=== PATIENT | female | born 1990 | race Caucasian/White ===

== ENCOUNTER 2016-10-21 11:09 | Emergency (ER) | payer OTHER ==
[2016-10-21 11:32] VITALS: TEMP 98.1
[2016-10-21] MEDS ORDERED: DICYCLOMINE 10 MG/ML 2 ML AMP IM STA (11:39)
[2016-10-21] MEDS ORDERED: ONDANSETRON 4 MG/2 ML VIAL IVP STA (11:39)
[2016-10-21] MEDS ORDERED: SODIUM CHLORIDE 0.9% 1,000 ML IV STA (11:39)
--- NOTE | 2016-10-21 11:41 | ED ---
Nausea/Vomiting/Diarrhea HPI - General Chief complaint: Nausea/Vomiting/Diarrhea Stated complaint: vomiting Time Seen by Provider: 10/21/16 11:37 Source: patient, RN notes reviewed Mode of arrival: ambulatory Limitations: no limitations - History of Present Illness Initial comments: 26-year-old female presents to the emergency Department chief complaint of nausea vomiting and diarrhea. Patient has had the symptoms for the past few days. Patient states that she has just been throwing up and having the diarrhea. Patient states that her whole abdomen feels crampy. Patient denies any fever chills with this. Patient denies any changes in food or diarrhea. Patient states she was concerned because she was not eating or drinking anything so she thought that she should be seen. Patient denies any recent fever , chills, shortness of breath, chest pain, back pain, abdominal pain, nausea vomiting, numbness or tingling, dysuria or hematuria, constipation or diarrhea, headaches or visual changes, or any other current symptoms. - Related Data Previous Rx's Medication Instructions Recorded Ondansetron Odt [Zofran ODT] 4 mg PO Q8HR PRN #20 tab 10/21/16 Allergies Allergy/AdvReac Type Severity Reaction Status Date / Time latex Allergy Unknown Verified 10/21/16 12:47 Review of Systems ROS Statement: Those systems with pertinent positive or pertinent negative responses have been documented in the HPI. ROS Other: All systems not noted in ROS Statement are negative. Past Medical History Past Medical History: No Reported History History of Any Multi-Drug Resistant Organisms: None Reported Additional Past Surgical History / Comment(s): splenectomy Past Psychological History: No Psychological Hx Reported Smoking Status: Never smoker Past Alcohol Use History: Rare Past Drug Use History: None Reported - Past Family History Father Family Medical History: Hyperlipidemia, Hypertension General Exam - General Exam Comments Initial Comments: General: The patient is awake and alert, in no distress, and does not appear acutely ill. Eye: Pupils are equal, round and reactive to light, extra-ocular movements are intact; there is normal conjunctiva bilaterally. No signs of icterus. Ears, nose, mouth and throat: There are moist mucous membranes. Neck: The neck is supple, there is no tenderness. Cardiovascular: There is a regular rate and rhythm. No murmur, rub or gallop is appreciated. Respiratory: Lungs are clear to auscultation, respirations are non-labored, breath sounds are equal. No wheezes, stridor, rales, or rhonchi. Gastrointestinal: Soft, non-distended, non-tender abdomen without masses or organomegaly noted. There is no rebound or guarding present. No CVA tenderness. Bowel sounds are unremarkable. Back: There is no tenderness to palpation in the midline. There is no obvious deformity. No rashes noted. Musculoskeletal: Normal ROM, no tenderness, There is no pedal edema. There is no calf tenderness or swelling. Sensation intact. Pulses equal bilaterally 2+. Neurological: CN II-XII intact, There are no obvious motor or sensory deficits. Coordination appears grossly intact. Speech is normal. Skin: Skin is warm and dry and no rashes or lesions are noted. Psychiatric: Cooperative, appropriate mood & affect, normal judgment. Limitations: no limitations Course Vital Signs 10/21/16 11:30 Temperature 98.1 F Pulse Rate 65 Respiratory 16 Rate Blood Pressure 102/60 O2 Sat by Pulse 100 Oximetry Medical Decision Making - Medical Decision Making 26-year-old female presents emergency room chief complaint of nausea vomiting and diarrhea. At this time the patient does appear to be most consistent with a possible gastroenteritis. Patient's abdomen is soft and nontender and is not lessening pain medication here. This time we discussed with start her on Zofran for home. We discussed follow-up return parameters all patient's questions. She stated that she understood and she is in agreement with plan. She will be discharged. - Lab Data Result diagrams: 10/21/16 11:50 10/21/16 11:50 Lab Results 10/21/16 10/21/16 10/21/16 Range/Units 11:50 11:50 12:15 WBC 11.6 H (3.8-10.6) k/uL RBC 5.16 (3.80-5.40) m/uL Hgb 15.1 (11.4-16.0) gm/dL Hct 47.5 H (34.0-46.0) % MCV 92.1 (80.0-100.0) fL MCH 29.4 (25.0-35.0) pg MCHC 31.9 (31.0-37.0) g/dL RDW 12.8 (11.5-15.5) % Plt Count 596 H (150-450) k/uL Neutrophils % 81 % Lymphocytes % 11 % Monocytes % 5 % Eosinophils % 3 % Basophils % 0 % Neutrophils # 9.4 H (1.3-7.7) k/uL Lymphocytes # 1.2 (1.0-4.8) k/uL Monocytes # 0.6 (0-1.0) k/uL Eosinophils # 0.3 (0-0.7) k/uL Basophils # 0.0 (0-0.2) k/uL Sodium 139 (137-145) mmol/L Potassium 4.2 (3.5-5.1) mmol/L Chloride 104 (98-107) mmol/L Carbon Dioxide 23 (22-30) mmol/L Anion Gap 12 mmol/L BUN 15 (7-17) mg/dL Creatinine 0.80 (0.52-1.04) mg/dL Est GFR (MDRD) Af Amer >60 (>60 ml/min/1.73 sqM) Est GFR (MDRD) Non-Af >60 (>60 ml/min/1.73 sqM) Glucose 81 (74-99) mg/dL Calcium 9.5 (8.4-10.2) mg/dL Total Bilirubin 1.2 (0.2-1.3) mg/dL AST 23 (14-36) U/L ALT 23 (9-52) U/L Alkaline Phosphatase 66 (38-126) U/L Total Protein 7.6 (6.3-8.2) g/dL Albumin 4.5 (3.5-5.0) g/dL Amylase 60 (30-110) U/L Lipase 111 (23-300) U/L Urine Color Urine Appearance (Clear) Urine pH (5.0-8.0) Ur Specific [place] (1.001-1.035) Urine Protein (Negative) Urine Glucose (UA) (Negative) Urine Ketones (Negative) Urine Blood (Negative) Urine Nitrite (Negative) Urine Bilirubin (Negative) Urine Urobilinogen (<2.0) mg/dL Ur Leukocyte Esterase (Negative) Urine RBC (0-5) /hpf Urine WBC (0-5) /hpf Ur Squamous Epith Cells (0-4) /hpf Urine Mucus (None) /hpf Urine HCG, Qual Not Detected (Not Detectd) 05/20/17 Range/Units 12:15 WBC (3.8-10.6) k/uL RBC (3.80-5.40) m/uL Hgb (11.4-16.0) gm/dL Hct (34.0-46.0) % MCV (80.0-100.0) fL MCH (25.0-35.0) pg MCHC (31.0-37.0) g/dL RDW (11.5-15.5) % Plt Count (150-450) k/uL Neutrophils % % Lymphocytes % % Monocytes % % Eosinophils % % Basophils % % Neutrophils # (1.3-7.7) k/uL Lymphocytes # (1.0-4.8) k/uL Monocytes # (0-1.0) k/uL Eosinophils # (0-0.7) k/uL Basophils # (0-0.2) k/uL Sodium (137-145) mmol/L Potassium (3.5-5.1) mmol/L Chloride (98-107) mmol/L Carbon Dioxide (22-30) mmol/L Anion Gap mmol/L BUN (7-17) mg/dL Creatinine (0.52-1.04) mg/dL Est GFR (MDRD) Af Amer (>60 ml/min/1.73 sqM) Est GFR (MDRD) Non-Af (>60 ml/min/1.73 sqM) Glucose (74-99) mg/dL Calcium (8.4-10.2) mg/dL Total Bilirubin (0.2-1.3) mg/dL AST (14-36) U/L ALT (9-52) U/L Alkaline Phosphatase (38-126) U/L Total Protein (6.3-8.2) g/dL Albumin (3.5-5.0) g/dL Amylase (30-110) U/L Lipase (23-300) U/L Urine Color Yellow Urine Appearance Cloudy H (Clear) Urine pH 5.5 (5.0-8.0) Ur Specific [place] 1.025 (1.001-1.035) Urine Protein 1+ H (Negative) Urine Glucose (UA) Negative (Negative) Urine Ketones 4+ H (Negative) Urine Blood Small H (Negative) Urine Nitrite Negative (Negative) Urine Bilirubin Negative (Negative) Urine Urobilinogen 3.0 (<2.0) mg/dL Ur Leukocyte Esterase Moderate H (Negative) Urine RBC 2 (0-5) /hpf Urine WBC 5 (0-5) /hpf Ur Squamous Epith Cells 24 H (0-4) /hpf Urine Mucus Occasional H (None) /hpf Urine HCG, Qual (Not Detectd) - Radiology Data Radiology results: report reviewed, image reviewed Disposition Clinical Impression: Nausea & vomiting, Dehydration Disposition: HOME SELF-CARE Condition: Stable Instructions: Acute Nausea and Vomiting (ED) Additional Instructions: Please use medication as discussed. Please follow up with family doctor if symptoms have not improved over the next two days. Please return to the emergency room if your symptoms increase or worsen or for any other concerns. Prescriptions: Ondansetron Odt [Zofran ODT] 4 mg PO Q8HR PRN #20 tab PRN Reason: Nausea Referrals: Vonda Orosco MD [Primary Care Provider] - 1-2 days Time of Disposition: 12:57
[2016-10-21 12:21] LABS: ALT 23 U/L (9-52); AST 23 U/L (14-36); Alkaline Phosphatase 66 U/L (38-126); Amylase 60 U/L (30-110); Anion Gap 12 mmol/L; Blood Urea Nitrogen 15 mg/dL (7-17); Calcium 9.5 mg/dL (8.4-10.2); Carbon Dioxide 23 mmol/L (22-30); Chloride 104 mmol/L (98-107); Glucose 81 mg/dL (74-99); Non-African American GFR(MDRD) >60 (>60 ml/min/1.73 sqM); Sodium 139 mmol/L (137-145); Total Bilirubin 1.2 mg/dL (0.2-1.3); Total Protein 7.6 g/dL (6.3-8.2)
[2016-10-21 12:22] LABS: Potassium 4.2 mmol/L (3.5-5.1)
[2016-10-21 12:25] LABS: Basophils % (A) 0 %; CHCM 32.8; Eosinophils # (A) 0.3 k/uL (0-0.7); Eosinophils % (A) 3 %; HCT 47.5 % (34.0-46.0); HGB 15.1 gm/dL (11.4-16.0); Luc # (Auto) 0.11; Luc % (Auto) 1; Lymphocytes # (A) 1.2 k/uL (1.0-4.8); Lymphocytes % (A) 11 %; MCH 29.4 pg (25.0-35.0); MCHC 31.9 g/dL (31.0-37.0); MCV 92.1 fL (80.0-100.0); Mean Platelet Volume 6.3; Monocytes # (A) 0.6 k/uL (0-1.0); Monocytes % (A) 5 %; Neutrophils # (A) 9.4 k/uL (1.3-7.7); Neutrophils % (A) 81 %; RBC 5.16 m/uL (3.80-5.40); RDW 12.8 % (11.5-15.5); WBC 11.6 k/uL (3.8-10.6); WBC (Perox) 11.69
[2016-10-21 12:33] LABS: Appearance,Urine Cloudy (Clear); Bilirubin,Urine Negative (Negative); Glucose,Urine (UA) Negative (Negative); Ketones,Urine 4+ (Negative); Leukocyte Esterase,Urine Moderate (Negative); Mucus,Urine Occasional /hpf; Nitrite,Urine Negative (Negative); PH, Urine 5.5 (5.0-8.0); Particle Count 11250; Protein,Urine 1+ (Negative); RBC,Urine 2 /hpf (0-5); Specific Gravity,Urine 1.025 (1.001-1.035); Squamous Epithelial Cell,Urine 24 /hpf (0-4); UA Billing (MACRO vs. MICRO) MICRO; WBC,Urine 5 /hpf (0-5)
--- NOTE | 2016-10-21 12:57 | XR ---
EXAMINATION TYPE: XR abdomen 2V DATE OF EXAM: 10/21/2016 12:51 PM CLINICAL DATA: 26-year-old female pain and vomiting for 2 days, [facility] COMPARISON: 03/27/2015 FINDINGS: Lung bases are clear. Some stable minimal tenting of the left hemidiaphragm relating to pleural paren chymal scarring. No evidence for free intraperitoneal air. No dilated small bowel or air-fluid levels. Scattered air and stool seen throughout the colon extendi ng distally into the rectum. No significant stool burden. No suspicious calcifications identified. IMPRESSION: No significant stool burden. No evidence of bowel obstruction or free intraperitoneal air.
[2016-10-21 13:07] VITALS: BP 105/51; PULSE 62; RESP 18
== END 2016-10-21 13:08 | disposition home or self-care (01) ==
LOC: EC 11:09
DX: E86.0 Dehydration (principal); Z91.040 Latex allergy status
CPT/HCPCS: 99284; 96374; 96361; 36415; 80053; 82150; 83690; 85025; 81001; 81025; 74020; J2405

== ENCOUNTER 2016-11-24 21:07 | Observation (INO) | payer OTHER ==
[2016-11-24] MEDS ORDERED: SODIUM CHLORIDE 0.9% 1,000 ML IV ONE (21:34)
[2016-11-24] MEDS ORDERED: METOCLOPRAMIDE 5 MG/ML 2 ML VIAL IVP STA (21:34)
[2016-11-24] MEDS ORDERED: diphenhydrAMINE 50 MG/ML 1 ML VIAL IVP STA (21:34)
[2016-11-24] MEDS ORDERED: ACETAMINOPHEN TAB 500 MG TAB PO STA (21:34)
--- NOTE | 2016-11-24 21:41 | ED ---
Headache HPI - General Chief Complaint: Headache Stated Complaint: blurred vision/mouth numbness Mode of arrival: ambulatory Limitations: no limitations - History of Present Illness Initial Comments: Patient is a 26-year-old female who presents for evaluation for intermittent visual loss/left face numbness/left hand numbness/blurry vision/headache over the last couple of days. Past medical history as below. Patient stated 3-4 days ago she lost vision in both of her eyes for 10 minutes. It spontaneously resolved and came back. She then felt nauseous and had numbness in her left hand. It spontaneously resolved as well. She had a headache during this time. No symptoms after that. However, today around 7:30 PM, she again lost vision for roughly 10 minutes which spontaneously resolved. She again felt nauseous and had some numbness on the left side of her face and left hand. Is also resolved. Is very similar to her first episode 3-4 days ago. She currently has a dull/throbbing headache in the front of her head. It is similar to previous headaches. It is currently 5-6 out of 10. It radiates to the back of her head. Sleeping makes it better. Nothing makes it worse. She has a history of migraines and is seen a specialist before in the past but is currently not on any medications. She admits to smoking marijuana. She smoked about 3-4 days ago. No other drug use or alcohol. No family history of multiple sclerosis or any other autoimmune disorders. Does not wear glasses or contacts. She currently denies fever, chills, changes in vision, URI symptoms, shortness breath, cough, chest pain, vomiting, diarrhea, pain or burning with urination. - Related Data Home Medications Medication Instructions Recorded Confirmed No Known Home Medications [No 11/24/16 11/24/16 Known Home Medications] Allergies Allergy/AdvReac Type Severity Reaction Status Date / Time latex Allergy Rash/Hives Verified 11/24/16 21:19 Review of Systems ROS Statement: Those systems with pertinent positive or pertinent negative responses have been documented in the HPI. ROS Other: All systems not noted in ROS Statement are negative. Past Medical History Past Medical History: No Reported History History of Any Multi-Drug Resistant Organisms: None Reported Additional Past Surgical History / Comment(s): splenectomy Past Psychological History: No Psychological Hx Reported Smoking Status: Never smoker Past Alcohol Use History: Rare Past Drug Use History: None Reported - Past Family History Father Family Medical History: Hyperlipidemia, Hypertension General Exam Limitations: no limitations General appearance: alert, in no apparent distress, other (Nontoxic-appearing resting comfortably in the stretcher) Head exam: Present: atraumatic, normocephalic, normal inspection Eye exam: Present: normal appearance, PERRL, EOMI, other (No conjunctival injection. Pupils equal round reactive to light and accommodation. Extra ocular muscles intact.). Absent: scleral icterus, conjunctival injection, nystagmus, periorbital swelling, periorbital tenderness ENT exam: Present: normal exam, mucous membranes moist Neck exam: Present: normal inspection. Absent: tenderness, meningismus, lymphadenopathy Respiratory exam: Present: normal lung sounds bilaterally. Absent: respiratory distress, wheezes, rales, rhonchi, stridor Cardiovascular Exam: Present: regular rate, normal rhythm, normal heart sounds. Absent: systolic murmur, diastolic murmur, rubs, gallop, clicks GI/Abdominal exam: Present: soft, normal bowel sounds, other (No pain with palpation of the abdomen. Soft. No peritoneal signs.). Absent: distended, tenderness, guarding, rebound, rigid Extremities exam: Present: normal inspection, full ROM, normal capillary refill. Absent: tenderness, pedal edema, joint swelling, calf tenderness Back exam: Present: normal inspection Neurological exam: Present: alert, oriented X3, CN II-XII intact, other (Alert and oriented 3. Cranial nerves II through XII grossly intact without focal neurological deficits. 5-5 strength of the upper and lower extremities. No ataxia of the upper or lower extremities. Sensation intact in all 4 extremities. L4 and S1 reflexes intact. NIH stroke scale of 0.) Psychiatric exam: Present: normal affect, normal mood Skin exam: Present: warm, dry, intact, normal color. Absent: rash Course Vital Signs 11/24/16 21:10 Temperature 98 F Pulse Rate 63 Respiratory 20 Rate Blood Pressure 157/60 O2 Sat by Pulse 100 Oximetry Medical Decision Making - Medical Decision Making Patient is a 26-year-old female resents for evaluation for migraine with loss of vision and left hand and left face numbness. Currently resolved. Does have a mild throbbing headache at this time. We'll order basic labs and a CT head with urinalysis and urine test. Will order an IV fluid bolus with acetaminophen, Reglan, Benadryl. 2200: Reevaluated the patient after she received her medications. Her headache is much improved. She feels a little sleepy. But overall feels better. Clarified with the patient what she meant by loss of vision. She does not lose vision but states that her vision becomes very blurry. Awaiting laboratory studies, urinalysis and CT head. 2330: Reviewed CT imaging of the brain which reveal no acute process. I reevaluated the patient and she states her headache is improved though still present. She is not having any lateralizing neuro deficits at this time or visual changes. Gave patient option of discharge home with follow-up with neuro an outpatient MRI versus observation overnight with neuro checks MRI and neurology follow-up. Patient elected the latter. I discussed the case with Dr. Bill who agrees to observation. Placed neuro consult and ordered an MRI without contrast at his request. - Lab Data Result diagrams: 11/24/16 21:53 11/24/16 21:53 Lab Results 11/24/16 11/24/16 11/24/16 Range/Units 21:45 21:45 21:53 WBC (3.8-10.6) k/uL RBC (3.80-5.40) m/uL Hgb (11.4-16.0) gm/dL Hct (34.0-46.0) % MCV (80.0-100.0) fL MCH (25.0-35.0) pg MCHC (31.0-37.0) g/dL RDW (11.5-15.5) % Plt Count (150-450) k/uL Neutrophils % % Lymphocytes % % Monocytes % % Eosinophils % % Basophils % % Neutrophils # (1.3-7.7) k/uL Lymphocytes # (1.0-4.8) k/uL Monocytes # (0-1.0) k/uL Eosinophils # (0-0.7) k/uL Basophils # (0-0.2) k/uL Sodium 140 (137-145) mmol/L Potassium 4.1 (3.5-5.1) mmol/L Chloride 107 (98-107) mmol/L Carbon Dioxide 22 (22-30) mmol/L Anion Gap 11 mmol/L BUN 7 (7-17) mg/dL Creatinine 0.71 (0.52-1.04) mg/dL Est GFR (MDRD) Af Amer >60 (>60 ml/min/1.73 sqM) Est GFR (MDRD) Non-Af >60 (>60 ml/min/1.73 sqM) Glucose 79 (74-99) mg/dL Calcium 9.1 (8.4-10.2) mg/dL Magnesium 2.0 (1.6-2.3) mg/dL Urine Color Light Yellow Urine Appearance Clear (Clear) Urine pH 6.0 (5.0-8.0) Ur Specific [place] 1.008 (1.001-1.035) Urine Protein Negative (Negative) Urine Glucose (UA) Negative (Negative) Urine Ketones Negative (Negative) Urine Blood Negative (Negative) Urine Nitrite Negative (Negative) Urine Bilirubin Negative (Negative) Urine Urobilinogen <2.0 (<2.0) mg/dL Ur Leukocyte Esterase Negative (Negative) Urine HCG, Qual Not Detected (Not Detectd) 11/24/16 Range/Units 21:53 WBC 12.5 H (3.8-10.6) k/uL RBC 4.67 (3.80-5.40) m/uL Hgb 14.6 (11.4-16.0) gm/dL Hct 42.4 (34.0-46.0) % MCV 90.7 (80.0-100.0) fL MCH 31.2 (25.0-35.0) pg MCHC 34.3 (31.0-37.0) g/dL RDW 12.6 (11.5-15.5) % Plt Count 542 H (150-450) k/uL Neutrophils % 57 % Lymphocytes % 32 % Monocytes % 5 % Eosinophils % 3 % Basophils % 1 % Neutrophils # 7.2 (1.3-7.7) k/uL Lymphocytes # 4.0 (1.0-4.8) k/uL Monocytes # 0.6 (0-1.0) k/uL Eosinophils # 0.4 (0-0.7) k/uL Basophils # 0.1 (0-0.2) k/uL Sodium (137-145) mmol/L Potassium (3.5-5.1) mmol/L Chloride (98-107) mmol/L Carbon Dioxide (22-30) mmol/L Anion Gap mmol/L BUN (7-17) mg/dL Creatinine (0.52-1.04) mg/dL Est GFR (MDRD) Af Amer (>60 ml/min/1.73 sqM) Est GFR (MDRD) Non-Af (>60 ml/min/1.73 sqM) Glucose (74-99) mg/dL Calcium (8.4-10.2) mg/dL Magnesium (1.6-2.3) mg/dL Urine Color Urine Appearance (Clear) Urine pH (5.0-8.0) Ur Specific [place] (1.001-1.035) Urine Protein (Negative) Urine Glucose (UA) (Negative) Urine Ketones (Negative) Urine Blood (Negative) Urine Nitrite (Negative) Urine Bilirubin (Negative) Urine Urobilinogen (<2.0) mg/dL Ur Leukocyte Esterase (Negative) Urine HCG, Qual (Not Detectd) Disposition Clinical Impression: Intractable headache, Neurological deficit, transient Disposition: ADMITTED IP TO THIS [facility] Condition: Good Referrals: Vonda Orosco MD [Primary Care Provider] - 1-2 days Decision to Admit Reason: Admit from EC
[2016-11-24 22:22] LABS: Basophils # (A) 0.1 k/uL (0-0.2); Basophils % (A) 1 %; CH 29.8; CHCM 33.1; Eosinophils # (A) 0.4 k/uL (0-0.7); Eosinophils % (A) 3 %; HCT 42.4 % (34.0-46.0); HDW 2.25; HGB 14.6 gm/dL (11.4-16.0); Luc # (Auto) 0.25; Luc % (Auto) 2; Lymphocytes % (A) 32 %; MCH 31.2 pg (25.0-35.0); MCHC 34.3 g/dL (31.0-37.0); MCV 90.7 fL (80.0-100.0); Mean Platelet Volume 6.2; Monocytes # (A) 0.6 k/uL (0-1.0); Monocytes % (A) 5 %; Neutrophils # (A) 7.2 k/uL (1.3-7.7); Neutrophils % (A) 57 %; RBC 4.67 m/uL (3.80-5.40); RDW 12.6 % (11.5-15.5); WBC 12.5 k/uL (3.8-10.6); WBC (Perox) 13.18
[2016-11-24 22:23] LABS: Appearance,Urine Clear (Clear); Bilirubin,Urine Negative (Negative); Glucose,Urine (UA) Negative (Negative); Ketones,Urine Negative (Negative); Leukocyte Esterase,Urine Negative (Negative); Nitrite,Urine Negative (Negative); Protein,Urine Negative (Negative); Specific Gravity,Urine 1.008 (1.001-1.035); UA Billing (MACRO vs. MICRO) CHEM; Urobilinogen,Urine <2.0 mg/dL (<2.0)
[2016-11-24 22:29] LABS: Anion Gap 11 mmol/L; Blood Urea Nitrogen 7 mg/dL (7-17); Calcium 9.1 mg/dL (8.4-10.2); Carbon Dioxide 22 mmol/L (22-30); Chloride 107 mmol/L (98-107); Glucose 79 mg/dL (74-99); Non-African American GFR(MDRD) >60 (>60 ml/min/1.73 sqM); Potassium 4.1 mmol/L (3.5-5.1); Sodium 140 mmol/L (137-145)
--- NOTE | 2016-11-24 23:16 | CT ---
History: Reason: Pain Exam: CT HEAD Without Contrast Technique more: CTDI is 60.30 mGy and DLP is 1108.40 mGy-cm. Technique more: This CT exam was performed using one or more of the following dose reduction techniques: automated exposure control, adjustment of the mA and/or kV according to patient size, and/or use of iterative reconstruction technique. Comparison: None available FINDINGS: No intracranial hemorrhage, mass effect or CT evidence of acute infarct. The ventricles are within limits and midline. The ortiz-white differentiation appears preserved. Mild paranasal sinus mucoperiosteal thickening. The mastoid and orbits appear within limits. IMPRESSION: No intracranial hemorrhage, mass effect or CT evidence of acute infarct. May follow-up with nonemergent MRI as warranted. Mild paranasal sinus mucoperiosteal thickening.
[2016-11-24] MEDS ORDERED: KETOROLAC 30 MG/ML 1 ML VIAL IVP STA (23:33)
[2016-11-24] MEDS ORDERED: NALOXONE 0.4 MG/ML 1 ML VIAL IV PRN (23:33)
[2016-11-25 07:35] VITALS: RESP 14
[2016-11-25] MEDS: BUTALB/APAP/CAFF 50-325-40MG TAB PO PRN ×2 (07:49→11:33)
--- NOTE | 2016-11-25 09:07 | MR ---
EXAMINATION TYPE: MR brain wo con DATE OF EXAM: 11/25/2016 8:52 AM. COMPARISON: NONE. HISTORY: Severe headache. Technique: Multiplanar, multiecho imaging of the brain was obtained without intravenous contrast. FINDINGS: Midline structures are unremarkable. There is a normal craniocervical junction. Echoplanar diffusion imaging is normal. There are normal vascular flow voids. The orbits are normal. There is mild mucoperiosteal thickening involving the frontal and ethmoidal sinuses as well as the ma xillary sinuses bilaterally. There is no evidence of a CP angle mass lesion. No acute focal lesion, mass effect or midline shift is seen. I do not see evidence of intracranial bl ood. IMPRESSION: 1. NO ACUTE INTRACRANIAL ABNORMALITY. 2. MILD, CHRONIC SINUS MUCOSAL DISEASE.
[2016-11-25] MEDS ORDERED: RX INFO: IV CONTRAST WAS GIVEN 1 EACH MISC MISCELLANE PRN (13:00)
--- NOTE | 2016-11-25 13:12 | P.CNNES ---
History of Present Illness Consult date: 11/25/16 Reason for Consult: This patient admitted with recurrent headache and visual loss. History of Present Illness: This patient is a 26-year-old left-handed white female who was in her usual state of health until 4 days ago. Patient states that over the last 4 days at home she has been experiencing recurrent headache pain. The pain and numbness has been mostly involving her left side of the head in the frontal region. On several occasions when she gets a headache she has been experiencing visual loss in both eyes. She states that the visual loss slowly improves and then she deals with a severe recurrent headache. She has a history of migraine headaches in the past for which she was treated. More recently she has not had to have any medications. She has used fierce at in the past for treatment of her vascular migraine headaches. Patient states that she has been experiencing numbness in the hands as well as the face when she gets these headaches. She describes the headaches as mostly bifrontal in location and throbbing in character. She rates the headache pain 5/10. Due to the recurrent nature of the headache symptom she was brought into the emergency room at [facility] yesterday. She was seen in the ER by Dr. Mae. She was sent for a computed tomography scan of the brain which was reported negative for any acute changes. Her headache pain yesterday was 5/10. Today it is improved. She did not experience any neck pain or fever chills in the ER. Due to her symptoms of recurrent headache and visual changes she was sent for MRI of the brain today. MRI is reported negative for any evidence of acute stroke or hemorrhage. The patient states she has had headaches in the past but this was quite severe over the last 3-4 days. We did we reviewed the results of the MRI that was done today with the patient. Her headache pain has improved today but still seems to be bifrontal in location. When questioned about her visual changes she states she did have bilateral visual loss. She also had peripheral vision loss at the onset of these headache symptoms. We have recommended the patient undergo a CTA angiogram of the head and neck to rule out any intracranial aneurysm or vascular changes. The patient is now admitted and neurology has been consulted for further evaluation and recommendations. Review of Systems Constitutional: Denies chills, Denies fever Eyes: denies blurred vision, denies pain Ears, nose, mouth and throat: Denies headache, Denies sore throat Cardiovascular: Denies chest pain, Denies shortness of breath Respiratory: Denies cough Gastrointestinal: Denies abdominal pain, Denies diarrhea, Denies nausea, Denies vomiting Genitourinary: Denies dysuria, Denies hematuria Musculoskeletal: Denies myalgias Integumentary: Denies pruritus, Denies rash Neurological: Reports double vision, Reports headaches, Reports loss of vision, Reports visual changes, Denies numbness, Denies weakness Psychiatric: Denies anxiety, Denies depression Endocrine: Denies fatigue, Denies weight change Past Medical History Past Medical History: No Reported History History of Any Multi-Drug Resistant Organisms: None Reported Additional Past Surgical History / Comment(s): splenectomy Past Anesthesia/Blood Transfusion Reactions: No Reported Reaction Past Psychological History: No Psychological Hx Reported Smoking Status: Never smoker Past Alcohol Use History: Rare Past Drug Use History: None Reported - Past Family History Father Family Medical History: Hyperlipidemia, Hypertension Medications and Allergies Home Medications Medication Instructions Recorded Confirmed Type No Known Home Medications [No 11/24/16 11/24/16 History Known Home Medications] Allergies Allergy/AdvReac Type Severity Reaction Status Date / Time latex Allergy Rash/Hives Verified 11/24/16 21:19 Physical Examination - Vital Signs Vital Signs: Vital Signs Temp Pulse Pulse Resp BP BP Pulse Ox 11/25/16 07:00 97.4 F L 69 14 102/58 99 11/25/16 01:09 18 11/25/16 01:00 98.2 F 62 16 102/57 98 11/25/16 00:36 98.4 F 72 15 101/56 97 11/24/16 23:47 98.2 F 63 20 111/57 99 11/24/16 21:10 98 F 63 20 157/60 100 Intake and Output 11/24/16 11/25/16 11/25/16 22:59 06:59 14:59 Other: # Voids 1 Weight 51.71 kg - Constitutional General appearance: average body habitus, cooperative - EENT EENT: PERRL, mucous membranes moist - Respiratory Respiratory: lungs clear, normal breath sounds - Cardiovascular Cardiovascular: regular rate, normal S1, normal S2 Extremities: no peripheral edema bilaterally - Gastrointestinal Gastrointestinal: normoactive bowel sounds - Integumentary Integumentary: normal - Neurologic Cranial nerve examination: PERRL, EOMI, VFF, V1/V2/V3 grossly intact, tongue midline, intact gag reflex, intact corneal reflex, normal palatal elevation Speech examination: intact Sensorimotor examination: intact Detailed motor examination: grossly full strength in all extremities Motor examination - right side: 5/5: biceps, triceps, wrist flexion, wrist extension, market master, hip flexors, knee extensors, dorsiflexion, toe extension (EHL) , plantarflexion Motor examination - left side: 5/5: biceps, triceps, wrist flexion, wrist extension, market master, hip flexors, knee extensors, dorsiflexion, toe extension (EHL) , plantarflexion Detailed sensory examination: intact Reflex and gait examination: intact Reflexes: 1+: ankle, bicep, knee, tricep - Musculoskeletal Musculoskeletal: no pain - Psychiatric Psychiatric: mood/affect appropriate, cooperative Results - Laboratory Findings CBC and BMP: 11/24/16 21:53 11/24/16 21:53 Abnormal Lab Findings: Abnormal Labs 11/24/16 21:53 WBC 12.5 H Plt Count 542 H Assessment and Plan (1) Migraine headache with aura Status: Acute Code(s): G43.109 - MIGRAINE WITH AURA, NOT INTRACTABLE, W/O STATUS MIGRAINOSUS (2) Complicated migraine Status: Acute Code(s): G43.109 - MIGRAINE WITH AURA, NOT INTRACTABLE, W/O STATUS MIGRAINOSUS Plan: This patient is a 26-year-old female who was admitted to the hospital with 4 day history of recurrent headache pain. Headaches were mostly in the bifrontal region of the head. She was brought into the emergency room yesterday where she was seen by Dr. Mae. She underwent a computed tomography scan of the brain which was reported negative. She was subsequent admitted to the hospital for further evaluation. She underwent MRI of the brain today but results which are noted above. MRI is negative for any acute changes. Patient did have evidence suggesting complicated migraine with visual aura. We've recommended patient undergo a CTA angiogram of the head and neck to rule out vascular malformation. If this study comes back negative she may be considered for discharge home. Her clinical history is consistent with complicated migraine. She may consider use appears that as needed for management. We will continue close neurological follow-up this patient during this admission. Overall prognosis at this time remains guarded. Time with Patient: Greater than 30
--- NOTE | 2016-11-25 14:18 | CT ---
EXAMINATION TYPE: CT angio head neck DATE OF EXAM: 11/25/2016 HISTORY: ROACH and vision loss COMPARISON: NONE CT DLP: 183.8 mGycm. Automated Exposure Control for Dose Reduction was Utilized. TECHNIQUE: CTA scan of the neck is performed with IV Contrast, patient injected with 65 mL of Omnipa que 350, axial images are obtained, coronal and sagittal reformatted images are reviewed. Three-D rec onstructed images are created on an independent workstation and reviewed. FINDINGS: There is normal branching pattern of the great vessels on the aortic arch. There is bilateral arteria l flow in the vertebral arteries. There is arterial flow in the common internal and external carotid arteries. There is no evidence of aneurysm or dissection. There is no evidence of stenosis. There is normal contrast opacification of the jugular veins. There is arterial flow in the vertebrobasilar artery system. There is flow in both distal vertebral a rteries. Vertebral arteries are symmetric. There is arterial flow in the anterior middle and posterior cerebral arteries. There is normal contra st opacification of the venous sinuses. There is no mass effect. There is no sign of neovascularity. IMPRESSION: Normal CT angiogram of the neck. Normal CT angiogram of the brain.
[2016-11-25 15:25] VITALS: BP 96/59; PULSE 64; TEMP 97.5
== END 2016-11-25 16:22 | disposition home or self-care (01) ==
LOC: EC 21:07 → 4MS4W 23:33
PROVIDERS: ADMIT Family Medicine; ATTEND Family Medicine
DX: G43.109 Migraine with aura, not intractable, without status migrainosus (principal); R29.818 Other symptoms and signs involving the nervous system; H53.8 Other visual disturbances; R20.0 Anesthesia of skin; F12.90 Cannabis use, unspecified, uncomplicated; Z87.891 Personal history of nicotine dependence; Z91.040 Latex allergy status; Z90.81 Acquired absence of spleen; Z82.49 Family history of ischemic heart disease and other diseases of the circulatory system; R56.9 Unspecified convulsions
CPT/HCPCS: 96375 ×3; 96361 ×2; 96374 ×2; 99285 ×2; 36415; 80048; 83735; 85025; 81003; 81025; 70496; 70450; 70498; 70551; G0378 ×2; J1200; J2765; Q9967; J1885

== ENCOUNTER 2017-07-15 09:51 | Emergency (ER) | payer OTHER ==
--- NOTE | 2017-07-15 10:35 | ED ---
Neck Injury/Pain HPI - General Chief Complaint: Neck Pain/Injury Stated Complaint: Neck pain Time Seen by Provider: 07/15/17 10:20 Source: patient, RN notes reviewed Mode of arrival: ambulatory Limitations: no limitations - History of Present Illness Initial Comments: This is a 27 year old female who presents with a chief complaint of neck pain that is typically chronic in nature, but worsening over the last week. The pain is located in her cervical spine region and radiates equally to bilateral shoulders. The patient denies any recent injury, and states that she woke up with it in severe pain. The pain is worse with standing or staying in position for long periods of time. She was evaluated by her PCP who treated her with Robaxin, Zofran, and Medrol Dose pack. The patient states the Robaxin does not provide her relief, and she has not taken the Medrol dose pack because she was afraid to take the pills. - Related Data Previous Rx's Medication Instructions Recorded Cyclobenzaprine [Flexeril] 10 mg PO TID PRN #15 tab 07/15/17 predniSONE 50 mg PO DAILY #5 tab 07/15/17 Allergies Allergy/AdvReac Type Severity Reaction Status Date / Time latex Allergy Rash/Hives Verified 07/15/17 09:59 Review of Systems ROS Statement: Those systems with pertinent positive or pertinent negative responses have been documented in the HPI. ROS Other: All systems not noted in ROS Statement are negative. Past Medical History Past Medical History: No Reported History History of Any Multi-Drug Resistant Organisms: None Reported Additional Past Surgical History / Comment(s): splenectomy Past Anesthesia/Blood Transfusion Reactions: No Reported Reaction Past Psychological History: No Psychological Hx Reported Smoking Status: Never smoker Past Alcohol Use History: Rare Past Drug Use History: None Reported - Past Family History Father Family Medical History: Hyperlipidemia, Hypertension General Exam Limitations: no limitations General appearance: alert, in no apparent distress Head exam: Present: atraumatic, normocephalic, normal inspection Eye exam: Present: normal appearance, PERRL, EOMI. Absent: scleral icterus, conjunctival injection, periorbital swelling ENT exam: Present: normal exam, normal oropharynx, mucous membranes moist Neck exam: Present: normal inspection, full ROM, other (Patient able to perform complete active ROM of the neck and experiences pain with neck extension) Respiratory exam: Present: normal lung sounds bilaterally. Absent: respiratory distress, wheezes, rales, rhonchi, stridor Cardiovascular Exam: Present: regular rate, normal rhythm, normal heart sounds. Absent: systolic murmur, diastolic murmur, rubs, gallop, clicks Extremities exam: Present: normal inspection, other (Neurovascular grossly intact. Upper extremity strength equal bilaterally full range of motion) Back exam: Present: normal inspection, full ROM. Absent: tenderness, paraspinal tenderness, vertebral tenderness Neurological exam: Present: alert, oriented X3, CN II-XII intact, reflexes normal. Absent: motor sensory deficit Psychiatric exam: Present: normal affect, normal mood Skin exam: Present: warm, dry, intact, normal color. Absent: rash Course Vital Signs 07/15/17 09:59 Temperature 97.7 F Pulse Rate 63 Respiratory 18 Rate Blood Pressure 97/56 O2 Sat by Pulse 98 Oximetry Medical Decision Making - Medical Decision Making 27-year-old female presented for chief complaint of neck pain. Patient has tenderness paraspinal region symptoms started while sleeping more consistent with torticollis. Patient states that the Robaxin is not helping though she's had Flexeril in the past which has helped. Patient states that she was nervous about taking steroids because of so many tablets. Patient was given prednisone 50 mg daily for 5 days. Patient continued heat and ice and return for any worsening symptoms. Disposition Clinical Impression: Spasmodic torticollis Disposition: HOME SELF-CARE Condition: Stable Instructions: Spasmodic Torticollis (ED) Additional Instructions: Please return to the Emergency Department if symptoms worsen or any other concerns. Prescriptions: Cyclobenzaprine [Flexeril] 10 mg PO TID PRN #15 tab PRN Reason: Muscle Spasm predniSONE 50 mg PO DAILY #5 tab Referrals: Vonda Orosco MD [Primary Care Provider] - 1-2 days Time of Disposition: 10:53
[2017-07-15] MEDS ORDERED: CYCLOBENZAPRINE 10 MG TAB PO STA (10:54)
[2017-07-15 11:02] VITALS: BP 118/64; PULSE 54; RESP 15; TEMP 97.3
== END 2017-07-15 11:10 | disposition home or self-care (01) ==
LOC: EC 09:51
DX: G24.3 Spasmodic torticollis (principal); Z91.040 Latex allergy status
CPT/HCPCS: 99283

== ENCOUNTER → 2017-07-20 | Outpatient (CLI) | payer OTHER ==
--- NOTE | 2017-07-20 15:10 | XR ---
Cervical spine HISTORY: Neck pain 5 views of the cervical spine Correlation to prior exam 01/24/2014 There is a slight head tilt towards the right. No evident foraminal encroachment. Bone mineralization is maintained. Loss of cervical lordosis may be due to muscle spasm. Cervical vertebral bodies show preserved height and alignment. Prevertebral soft tissues are normal. IMPRESSION: Loss of lordosis, head tilt, correlate for torticollis
== END | disposition home or self-care (01) ==
LOC: RADXRMAIN 12:22
PROVIDERS: ATTEND Family Medicine
DX: M54.2 Cervicalgia (principal)
CPT/HCPCS: 72050

== ENCOUNTER → 2017-08-22 | Outpatient (CLI) | payer OTHER ==
--- NOTE | 2017-08-22 15:12 | CT ---
EXAMINATION TYPE: CT orbits wo con DATE OF EXAM: 08/22/2017 COMPARISON: CT brain November 24, 2016 HISTORY: Rt orbit trauma, ran into door jam CT DLP: 300.8 mGycm Automated exposure control for dose reduction was used. FINDINGS: Orbital floors and kelly are intact. The globes are intact bilaterally. Intraconal fat is preserved. There is mild to moderate mucosal thickening in bilateral ethmoid sinuses with patchy opacification m ore prominent versus prior study. There is mild mucosal thickening anteriorly in right sphenoid sinus redemonstrated. There is new moderate mucosal thickening with patchy opacification left sphenoid sin us. There is mild thickening inferiorly in both maxillary sinuses now identified and mild mucosal thi ckening inferiorly in both frontal sinuses redemonstrated. Nasal bones are intact. Zygomatic arches are intact. Visualized portion of mandible is intact. Pteryg oid plates are intact. IMPRESSION: NO ACUTE ORBITAL FRACTURE OR HEMATOMA. ACUTE ON CHRONIC PARANASAL SINUS DISEASE MORE PROMINENT VERSUS PRIOR NOTED. RESULTS COMMUNICATED TO ORDERING PHYSICIAN VIA TELEPHONE AT TIME OF DICTATION REQUESTED.
== END | disposition home or self-care (01) ==
LOC: RADCTMAIN 14:48
PROVIDERS: ATTEND Family Medicine
DX: S05.91XA Unspecified injury of right eye and orbit, initial encounter (principal); S00.11XA Contusion of right eyelid and periocular area, initial encounter
CPT/HCPCS: 70480

== ENCOUNTER 2018-01-11 08:10 | Day surgery (SDC) | payer OTHER ==
[2018-01-08 15:12] VITALS: BMI 22.4
[~2018-01-11 08:10] MED LIST: LACTATED RINGERS 1,000 ML IV SCH
[2018-01-11 08:36] VITALS: RESP 16; TEMP 98.3
[2018-01-11] MEDS ORDERED: PROPOFOL 10 MG/ML 20 ML VIAL IV ONE (08:42)
--- NOTE | 2018-01-11 08:57 | P.GSHP ---
History of Present Illness H&P Date: 01/11/18 Chief Complaint: Abdominal pain Patient today for upper endoscopy. Patient has history of suspected gastritis although no previous endoscopy. Daily nausea. She has tried Zantac with some relief. No rectal bleeding or melena. No recent testing. History of previous trauma. Past Medical History Past Medical History: No Reported History Additional Past Medical History / Comment(s): "stomach pains" History of Any Multi-Drug Resistant Organisms: None Reported Additional Past Surgical History / Comment(s): splenectomy r/t trauma incident Past Anesthesia/Blood Transfusion Reactions: No Reported Reaction Smoking Status: Never smoker - Past Family History Father Family Medical History: Hyperlipidemia, Hypertension Medications and Allergies Home Medications Medication Instructions Recorded Confirmed Type Ondansetron [Zofran] 4 mg PO Q12HR PRN 01/08/18 01/11/18 History Ranitidine HCl [Zantac] 150 mg PO BID 01/08/18 01/11/18 History Allergies Allergy/AdvReac Type Severity Reaction Status Date / Time latex Allergy Rash/Hives Verified 01/11/18 08:34 Surgical - Exam Vital Signs Temp Pulse Resp BP Pulse Ox 98.3 F 81 16 129/81 97 01/11/18 08:35 01/11/18 08:35 01/11/18 08:35 01/11/18 08:35 01/11/18 08:35 Physical exam: General: Well-developed, well-nourished HEENT: Normocephalic, sclerae nonicteric Abdomen: Nontender, nondistended Extremities: No edema Neuro: Alert and oriented Assessment and Plan (1) Abdominal pain Narrative/Plan: Will proceed with upper endoscopy at this time. Current Visit: No Status: Acute Code(s): R10.9 - UNSPECIFIED ABDOMINAL PAIN SNOMED Code(s): 59434551
--- NOTE | 2018-01-11 09:09 | P.PCN ---
Date of Procedure: 01/11/18 Procedure(s) Performed: Preoperative Dx: Abdominal pain Postoperative Dx: Mild gastritis, small hiatal hernia Procedure: EGD with Bx Anesthesia: Sedation Endoscopist: Dr. Garcia Specimens: Duodenum, antrum Endoscopic Procedure: The patient was on the endoscopy table in the left decubitus position. The Olympus gastroscope was inserted into the oropharynx and passed under direct visualization to the region of the third portion of the duodenum. From that point the scope was slowly withdrawn inspecting all surfaces carefully. There were no neoplastic inflammatory or polypoid lesions throughout the duodenum. A biopsy of the duodenum took place to rule out celiac disease. The pylorus was widely patent. The stomach was carefully inspected. There was very mild gastritis present. A biopsy of the antrum took place to rule out H. pylori. Retroflexion revealed a small sliding hiatal hernia. The GE junction was present 1 cm above the diaphragmatic hiatus.. The esophagus was then carefully examined. There were no neoplastic inflammatory or polypoid lesions throughout the visualized esophagus. The patient was then taken to the recovery room in stable condition per anesthesia guidelines. Recommendations: Await biopsy results. Begin Joy.
[2018-01-11 09:39] VITALS: BP 107/68; PULSE 56
== END 2018-01-11 10:10 | disposition home or self-care (01) ==
LOC: ORWHC2ENDO 08:10
PROVIDERS: ATTEND Surgery
DX: K29.50 Unspecified chronic gastritis without bleeding (principal); K44.9 Diaphragmatic hernia without obstruction or gangrene; K21.9 Gastro-esophageal reflux disease without esophagitis; Z79.899 Other long term (current) drug therapy; Z91.040 Latex allergy status
CPT/HCPCS: 81025; 43239; J2704; 88305

== ENCOUNTER 2018-02-10 09:35 | Emergency (ER) | payer OTHER ==
[2018-02-10 09:50] VITALS: RESP 18
[2018-02-10] MEDS ORDERED: SODIUM CHLORIDE 0.9% 1,000 ML IV STA (09:56)
[2018-02-10] MEDS ORDERED: METOCLOPRAMIDE 5 MG/ML 2 ML VIAL IVP STA (09:56)
[2018-02-10] MEDS ORDERED: KETOROLAC 30 MG/ML 1 ML VIAL IVP STA (10:05)
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
[2018-02-10 10:38] LABS: Basophils # (A) 0.1 k/uL (0-0.2); Basophils % (A) 1 %; Eosinophils # (A) 0.4 k/uL (0-0.7); Eosinophils % (A) 3 %; HCT 43.7 % (34.0-46.0); HGB 13.8 gm/dL (11.4-16.0); Lymphocytes # (A) 2.4 k/uL (1.0-4.8); Lymphocytes % (A) 21 %; MCHC 31.7 g/dL (31.0-37.0); MCV 94.6 fL (80.0-100.0); Monocytes # (A) 0.7 k/uL (0-1.0); Monocytes % (A) 6 %; Neutrophils # (A) 7.7 k/uL (1.3-7.7); Neutrophils % (A) 68 %; Platelet Count 609 k/uL (150-450); RBC 4.62 m/uL (3.80-5.40); RDW 12.5 % (11.5-15.5); WBC 11.4 k/uL (3.8-10.6)
[2018-02-10 10:43] LABS: Appearance,Urine Cloudy (Clear); Bacteria,Urine Occasional /hpf; Bilirubin,Urine Negative (Negative); Blood,Urine Large (Negative); Color,Urine Yellow; Glucose,Urine (UA) Negative (Negative); Ketones,Urine Negative (Negative); Leukocyte Esterase,Urine Moderate (Negative); Mucus,Urine Many /hpf; Nitrite,Urine Negative (Negative); PH, Urine 5.5 (5.0-8.0); Protein,Urine 1+ (Negative); RBC,Urine 25 /hpf (0-5); Specific Gravity,Urine 1.025 (1.001-1.035); Squamous Epithelial Cell,Urine 13 /hpf (0-4); WBC,Urine 8 /hpf (0-5)
[2018-02-10 10:44] LABS: ALT 32 U/L (9-52); AST 33 U/L (14-36); Albumin 4.1 g/dL (3.5-5.0); Alkaline Phosphatase 43 U/L (38-126); Amylase 57 U/L (30-110); Anion Gap 7 mmol/L; Blood Urea Nitrogen 10 mg/dL (7-17); Calcium 9.4 mg/dL (8.4-10.2); Carbon Dioxide 26 mmol/L (22-30); Chloride 109 mmol/L (98-107); Glucose 95 mg/dL (74-99); Lipase 127 U/L (23-300); Potassium 4.5 mmol/L (3.5-5.1); Sodium 142 mmol/L (137-145); Total Bilirubin 0.6 mg/dL (0.2-1.3); Total Protein 6.9 g/dL (6.3-8.2)
--- NOTE | 2018-02-10 11:36 | CT ---
EXAMINATION TYPE: CT abdomen pelvis wo con DATE OF EXAM: 02/10/2018 COMPARISON: Previous study dated 03/27/2015. HISTORY: Pain CT DLP: 209.8 mGycm Automated exposure control for dose reduction was used. FINDINGS: Visualized portions of the lungs are clear. There is no pleural or pericardial fluid. The h eart is not enlarged. Within the abdomen, the spleen is been removed. There is a stable 1.7 cm splenule in the left upper q uadrant. The liver and gallbladder are unremarkable. Both adrenal glands are normal. There is no evidence of hydronephrosis or nephrolithiasis. The pancreas is not clearly visualized due to a paucity of retroperitoneal fat. There is no significant retroperitoneal, iliac or inguinal adenopathy. The bladder is unremarkable. The uterus is unremarkable. The ovaries are not visualized with certainty. There is no significant diverticular change and there is no radiographic evidence of diverticulitis. The appendix is not visualized with certainty. Small bowel loops are of normal caliber. There is a scant amount of free fluid within the pelvis. No free air is seen. 4 no bony lesion is seen. IMPRESSION: 1. NO EVIDENCE OF NEPHROLITHIASIS OR HYDRONEPHROSIS. 2. NO ACUTE INFLAMMATORY ABNORMALITY. 3. FAILURE TO VISUALIZE THE APPENDIX.
[2018-02-10 11:57] VITALS: BP 114/61; PULSE 62; TEMP 97.5
== END 2018-02-10 12:08 | disposition home or self-care (01) ==
LOC: EC 09:35
DX: N93.8 Other specified abnormal uterine and vaginal bleeding (principal); R11.2 Nausea with vomiting, unspecified; Z79.899 Other long term (current) drug therapy; Z91.040 Latex allergy status; Z87.19 Personal history of other diseases of the digestive system
CPT/HCPCS: 36415; 80053; 82150; 83690; 85025; 81001; 81025; 74176; 99284; 96374; 96375; 96361; J2765; J1885

== ENCOUNTER 2018-06-26 21:24 | Emergency (ER) | payer OTHER ==
[2018-06-26 21:57] VITALS: RESP 18
[2018-06-26] MEDS ORDERED: ACET/COD 300 MG/30 MG STARTER PACK 6 TAB BTL PO STA (22:35)
[2018-06-26] MEDS ORDERED: Acetaminophen-Codeine 300-30mg TAB PO STA (22:35)
[2018-06-26] MEDS ORDERED: valACYclovir 500 MG TAB PO STA (22:36)
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
[2018-06-26] MEDS ORDERED: LIDOCAINE 5% PATCH TOPICAL STA (22:49)
[2018-06-26 23:29] VITALS: BP 138/79; PULSE 78; TEMP 97.7
[2018-06-27] MEDS ORDERED: LIDOCAINE 5% PATCH TOPICAL SCH (09:00)
== END 2018-06-26 23:29 | disposition home or self-care (01) ==
LOC: EC 21:24
DX: B02.9 Zoster without complications (principal); Z91.040 Latex allergy status; Z90.81 Acquired absence of spleen
CPT/HCPCS: 99283

== ENCOUNTER 2018-06-28 09:56 | Inpatient (IN) | payer OTHER ==
[2018-06-28] MEDS ORDERED: ACYCLOVIR SODIUM IV ONE (10:48)
[2018-06-28] MEDS ORDERED: SODIUM CHLORIDE 0.9% IV ONE (10:48)
[2018-06-28 11:20] LABS: Basophils # (A) 0.1 k/uL (0-0.2); Basophils % (A) 1 %; Eosinophils # (A) 0.6 k/uL (0-0.7); Eosinophils % (A) 8 %; HCT 42.6 % (34.0-46.0); HGB 13.7 gm/dL (11.4-16.0); Lymphocytes # (A) 2.8 k/uL (1.0-4.8); Lymphocytes % (A) 34 %; MCH 29.8 pg (25.0-35.0); MCHC 32.1 g/dL (31.0-37.0); Mean Platelet Volume 5.8; Monocytes # (A) 0.7 k/uL (0-1.0); Monocytes % (A) 8 %; Neutrophils # (A) 3.9 k/uL (1.3-7.7); Neutrophils % (A) 46 %; Platelet Count 561 k/uL (150-450); RBC 4.59 m/uL (3.80-5.40); RDW 12.9 % (11.5-15.5); WBC 8.3 k/uL (3.8-10.6)
[2018-06-28 11:29] LABS: ALT 30 U/L (9-52); AST 30 U/L (14-36); Albumin 3.8 g/dL (3.5-5.0); Alkaline Phosphatase 52 U/L (38-126); Anion Gap 7 mmol/L; Blood Urea Nitrogen 11 mg/dL (7-17); Carbon Dioxide 26 mmol/L (22-30); Chloride 106 mmol/L (98-107); Glucose 90 mg/dL (74-99); Potassium 4.3 mmol/L (3.5-5.1); Sodium 139 mmol/L (137-145); Total Bilirubin 0.4 mg/dL (0.2-1.3); Total Protein 6.5 g/dL (6.3-8.2)
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
[2018-06-28] MEDS ORDERED: NALOXONE 0.4 MG/ML 1 ML VIAL IV PRN (11:48)
[2018-06-28] MEDS ORDERED: ONDANSETRON 4 MG/2 ML VIAL IVP PRN (11:48)
[2018-06-28] MEDS: IBUPROFEN 400 MG TAB PO PRN (12:27)
[2018-06-28] MEDS: HYDROcodone/APAP 5-325MG 1 EACH TAB PO PRN ×2 (12:27→20:34)
[2018-06-28] MEDS: ACYCLOVIR SODIUM 500 MG in SODIUM CHLORIDE 0.9% 100 ML IVPB SCH (20:45)
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
[2018-06-29] MEDS: IBUPROFEN 400 MG TAB PO PRN (01:01)
[2018-06-29] MEDS: ACYCLOVIR SODIUM 500 MG in SODIUM CHLORIDE 0.9% 100 ML IVPB SCH ×3 (04:55→20:30)
[2018-06-29] MEDS: HYDROcodone/APAP 5-325MG 1 EACH TAB PO PRN ×2 (06:06→20:30)
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
[2018-06-30] MEDS: HYDROcodone/APAP 5-325MG 1 EACH TAB PO PRN ×2 (01:36→18:45)
[2018-06-30] MEDS: ACYCLOVIR SODIUM 500 MG in SODIUM CHLORIDE 0.9% 100 ML IVPB SCH ×3 (05:03→20:37)
--- NOTE | 2018-06-30 07:22 | PN ---
PROGRESS NOTE DATE OF SERVICE: 06/29/2018 REASON FOR FOLLOW UP: ( ) zoster. INTERVAL HISTORY: The patient is currently afebrile. She is still complaining of burning pain to the left abdominal wall rash area. The patient did have a small lesion on her left thigh that seemed to have resolved and no new rash has been noted. The patient denies having any chest pain or shortness of breath or cough. No abdominal pain, no diarrhea. PHYSICAL EXAMINATION: Blood pressure 109/52 with a pulse of 52, temperature 96.4, she is 97% on room air. GENERAL DESCRIPTION: A young female lying in bed in no distress. RESPIRATORY SYSTEM: Unlabored breathing. Clear to auscultation anteriorly. HEART: S1, S2. Regular rate and rhythm. ABDOMEN: Rash on the left lateral abdominal wall, currently with no worsening, no new rash. LABS: No new lab has been obtained today. DIAGNOSTIC IMPRESSION AND PLAN: Patient with left T8 dermatome vesicular rash, likely zoster. The rash on the thigh in the back does not have the features of vesicular rash and symptoms have resolved very quickly compared to the rash on the left abdominal wall with possibly localized rather than disseminated shingles. Patient currently covered with acyclovir ( ) for post herpetic neuralgia awaiting testing that was ordered for his immunodeficiency. Continue supportive care. MMODL / IJN: [id number] /
[2018-06-30] MEDS: PREGABALIN 75 MG CAP PO SCH ×2 (08:01→08:02)
[2018-06-30 15:17] VITALS: RESP 16
--- NOTE | 2018-06-30 23:46 | PN ---
PROGRESS NOTE DATE OF SERVICE: 06/30/2018. REASON FOR FOLLOWUP: Left T8 dermatome zoster. INTERVAL HISTORY: The patient is currently afebrile. The patient's rash has decreased in intensity. It is currently controlled. The rash is mostly itching compared to the burning pain that she had on the left abdominal area with no surrounding redness. No abdominal pain, no diarrhea. PHYSICAL EXAMINATION: Blood pressure is 113/62 with a pulse of 51, temperature 97.4. She is 98% on room air. GENERAL DESCRIPTION: A middle-aged female up in the room in no distress. RESPIRATORY SYSTEM: Unlabored breathing. Clear to auscultation anteriorly. HEART: S1, S2. Regular rate and rhythm. ABDOMEN: Soft, nontender. Left lower abdominal vesicular rash with no worsening. The rash on the back is not very typical for shingles. LABS: Hematology profile is currently pending. DIAGNOSTIC IMPRESSION AND PLAN: Patient with left T8 dermatome herpes zoster, to continue with the IV acyclovir on discharge. Clinically doubt disseminated zoster as the rash she has on the upper back is not vesicular and has similar features. Continue supportive care. MMODL / IJN: [id number] /
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
[2018-07-01] MEDS: ACYCLOVIR SODIUM 500 MG in SODIUM CHLORIDE 0.9% 100 ML IVPB SCH ×2 (04:41→13:15)
[2018-07-01] MEDS: PREGABALIN 75 MG CAP PO SCH (08:04)
[2018-07-01 11:01] LABS: Anion Gap 8 mmol/L; Blood Urea Nitrogen 15 mg/dL (7-17); Calcium 9.7 mg/dL (8.4-10.2); Carbon Dioxide 27 mmol/L (22-30); Chloride 104 mmol/L (98-107); Glucose 87 mg/dL (74-99); Potassium 4.8 mmol/L (3.5-5.1); Sodium 139 mmol/L (137-145)
[2018-07-01 11:07] LABS: HCG,Qualitative Serum Not Detected
--- NOTE | 2018-07-01 12:17 | PN ---
PROGRESS NOTE DATE OF SERVICE: 07/01/2018 REASON FOR FOLLOWUP: Left T8 dermatome zoster. INTERVAL HISTORY: The patient is currently afebrile. She is feeling better. The rash on the left side of the abdominal wall has been out. No new rash. Denies any chest pain, shortness of breath or cough. No abdominal pain or diarrhea. PHYSICAL EXAMINATION: On examination, blood pressure is 108/90 with a pulse of 51, temperature 96.7. She is 100% on room air. General description is a middle-aged female up in the room in no distress. RESPIRATORY SYSTEM: Unlabored breathing, clear to auscultation anteriorly. HEART: S1, S2. Regular rate and rhythm. ABDOMEN: Soft, no tenderness. Left trunk rash is improving. No cellulitis. LABS: Creatinine 0.83. DIAGNOSTIC IMPRESSION AND PLAN: Patient with acute left T8 dermatome zoster, to continue therapy with oral Valtrex. Prescription was sent to the pharmacy. Continue close outpatient followup. MMODL / IJN: [id number] /
[2018-07-01 12:22] LABS: Hepatitis C IgG Antibody Non-Reactive (Non-Reactive)
[2018-07-01 12:26] LABS: HIV 1 AB Non-Reactive (Non-Reactive); HIV AB P24 Non-Reactive (Non-Reactive); HIV P24 AG Non-Reactive (Non-Reactive)
[2018-07-01] MEDS ORDERED: GABAPENTIN 300 MG CAP PO STA (14:51)
[2018-07-01 16:11] VITALS: BP 106/54; PULSE 56; TEMP 97.2
--- NOTE | 2018-07-01 23:27 | P.DS ---
Providers Date of admission: 06/29/18 08:57 Attending physician: Junito Gipson Consults: 06/28/18 11:48 Consult Physician Stat Consulting Provider: Edwin Hsu Consult Reason/Comments: Disseminated herpes zoster Do you want consulting provider notified?: Yes 06/28/18 11:49 Consult Physician Stat Consulting Provider: Bong You Consult Reason/Comments: Disseminated herpes zoster Do you want consulting provider notified?: Yes Primary care physician: [facility] Course: Diagnosis is: Herpes zoster with rash left T8 dermatomal distribution History of migraine headaches Hospital course: This is a pleasant 28 years old female who presents because of left C8 dermatomal herpes zoster, rather than disseminated herpes zoster. Lesions are scattered about 8-10 ones with all been dried up and no more vesicular lesion. SHe has some abdominal pain and the infection side but is controlled with pain medication. Patient has been followed by infectious disease and significant treated with IV acyclovir which was switched to oral antibiotic. Patient returned close to her baseline and she was cleared by infectious disease for discharge. Patient herself feels fine and can go home. Problems and management plan was discussed with the patient and she verbalized understanding and acceptance Patient was well found stable and can be discharged home however she needs follow-up as an outpatient. pt instructed to f/u with her pcp and dermatology in one week pt copay for lyrica was $600 , it was switched to neurontin and one dose is given for the pt and tolerated that well, her copay is around $76, and pt agrees with that. pt did not want any norco. discharge exam Gen: patient is a AAOx3, no distress CVS: S1-S2, RRR, no murmur Lungs: B/L CTA, no wheezing Abdomen: soft, no distention, no tenderness, positive bowel sounds Extremity: no leg edema or induration Skin: Few dried spots on the left T8 dermatomes, 8-10. No vesicular lesion. No erythema or cellulitis. Few fainting spell bouts of feeding PT, rash on the back and upper chest and legs. Time spent more than 35 minutes Patient Condition at Discharge: Stable Plan - Discharge Summary Discharge Rx Participant: No New Discharge Prescriptions: New valACYclovir HCL [Valtrex] 1,000 mg PO Q8HR #21 tab Gabapentin [Neurontin] 300 mg PO BID #22 tab Discontinued Acetaminophen-Codeine 300-30mg [Tylenol w/codeine #3] 1 - 2 tab PO Q4-6H PRN PRN Reason: Pain Discharge Medication List Gabapentin [Neurontin] 300 mg PO BID #22 tab 07/01/18 [Rx] valACYclovir HCL [Valtrex] 1,000 mg PO Q8HR #21 tab 07/01/18 [Rx] Follow up Appointment(s)/Referral(s): Bong You MD [STAFF PHYSICIAN] - 1 Week Vonda Orosco MD [Primary Care Provider] - 1-2 days Patient Instructions/Handouts: Shingles (DC) Activity/Diet/Wound Care/Special Instructions: regular diet activity as tolerated Discharge Disposition: HOME SELF-CARE
== END 2018-07-01 16:07 | disposition home or self-care (01) | DRG 866 ==
LOC: EC 09:56 → 4MS4W 11:56 → OBSVTOIN 06-29 08:57
PROVIDERS: ADMIT Internal Medicine; ATTEND Internal Medicine
DX: B02.8 Zoster with other complications (principal); D84.9 Immunodeficiency, unspecified; K29.70 Gastritis, unspecified, without bleeding; K44.9 Diaphragmatic hernia without obstruction or gangrene; Z82.49 Family history of ischemic heart disease and other diseases of the circulatory system; Z90.81 Acquired absence of spleen; V89.2XXS Person injured in unspecified motor-vehicle accident, traffic, sequela
CPT/HCPCS: 36415; 80048; 80053; 83605; 84703; 85025; 86694; 86695; 86696; 86787; 86803; 87040; 87340; 87390; 96365; 99284

== ENCOUNTER 2018-12-29 10:43 | Emergency (ER) | payer OTHER ==
[2018-12-29 11:20] VITALS: RESP 18; TEMP 98.1
[2018-12-29] MEDS ORDERED: SODIUM CHLORIDE 0.9% 500 ML 500 ML IV STA (11:43)
[2018-12-29] MEDS ORDERED: MORPHINE SULFATE 4 MG/ML SYRINGE IVP STA ×2 (11:43→13:39)
[2018-12-29 11:55] LABS: Basophils # (A) 0.1 k/uL (0-0.2); Basophils % (A) 0 %; Eosinophils # (A) 0.5 k/uL (0-0.7); Eosinophils % (A) 3 %; HCT 39.9 % (34.0-46.0); HGB 12.9 gm/dL (11.4-16.0); Lymphocytes # (A) 2.2 k/uL (1.0-4.8); Lymphocytes % (A) 14 %; MCH 29.6 pg (25.0-35.0); MCHC 32.5 g/dL (31.0-37.0); MCV 91.1 fL (80.0-100.0); Monocytes # (A) 0.7 k/uL (0-1.0); Monocytes % (A) 5 %; Neutrophils # (A) 12.3 k/uL (1.3-7.7); Neutrophils % (A) 77 %; Platelet Count 667 k/uL (150-450); RBC 4.38 m/uL (3.80-5.40); RDW 13.1 % (11.5-15.5); WBC 15.9 k/uL (3.8-10.6)
--- NOTE | 2018-12-29 12:02 | ED ---
General Adult HPI - General Chief complaint: Abdominal Pain Stated complaint: BLEEDING AND CRAMPING FOLLOWING D&C Time Seen by Provider: 12/29/18 11:21 Source: patient, RN notes reviewed Mode of arrival: ambulatory Limitations: no limitations - History of Present Illness Initial comments: Romy is a 28-year-old female who presents to the emergency department for vaginal bleeding and lower abdominal pain. Patient states that she miscarried at 7 weeks and had a D&C 3 days ago at [facility] by Dr. Khoury. States that yesterday she started to have lower abdominal pain and cramping. States that she was also having some mild bleeding. She said today she passed a large clot. However since then bleeding has diminished. States it is very light at this time however still complaining of lower abdominal pain. Denies fevers or chills. Denies purulent discharge.Patient has no other complaints at this time including shortness of breath, chest pain, nausea or vomiting, headache, or visual changes. - Related Data Previous Rx's Medication Instructions Recorded Gabapentin [Neurontin] 300 mg PO BID #22 tab 07/01/18 valACYclovir HCL [Valtrex] 1,000 mg PO Q8HR #21 tab 07/01/18 Allergies Allergy/AdvReac Type Severity Reaction Status Date / Time latex Allergy Rash/Hives Verified 12/29/18 11:17 Review of Systems ROS Statement: Those systems with pertinent positive or pertinent negative responses have been documented in the HPI. ROS Other: All systems not noted in ROS Statement are negative. Past Medical History Past Medical History: No Reported History Additional Past Medical History / Comment(s): Hiatal hernia History of Any Multi-Drug Resistant Organisms: None Reported Additional Past Surgical History / Comment(s): splenectomy r/t trauma incident, EGD, D&C Past Anesthesia/Blood Transfusion Reactions: No Reported Reaction Past Psychological History: No Psychological Hx Reported Smoking Status: Never smoker Past Alcohol Use History: None Reported Past Drug Use History: None Reported - Past Family History Mother Family Medical History: No Reported History Father Family Medical History: No Reported History General Exam Limitations: no limitations General appearance: alert, in no apparent distress Head exam: Present: atraumatic, normocephalic, normal inspection Eye exam: Present: normal appearance, PERRL, EOMI. Absent: scleral icterus, conjunctival injection, periorbital swelling ENT exam: Present: normal exam, mucous membranes moist Neck exam: Present: normal inspection, full ROM. Absent: tenderness, meningismus, lymphadenopathy Respiratory exam: Present: normal lung sounds bilaterally. Absent: respiratory distress, wheezes, rales, rhonchi, stridor Cardiovascular Exam: Present: regular rate, normal rhythm, normal heart sounds. Absent: systolic murmur, diastolic murmur, rubs, gallop, clicks GI/Abdominal exam: Present: soft, tenderness (tenderness ntoed in the lower abdomen), normal bowel sounds. Absent: distended, guarding, rebound, rigid External exam: Present: normal external exam. Absent: erythema, swelling, lesions, lacerations, ecchymosis Speculum exam: Present: vaginal bleeding. Absent: normal speculum exam, erythema, vaginal discharge, cervical discharge, foreign body, tissue, laceration By manual exam: Present: adnexal tenderness, uterine enlargement Course Vital Signs 12/29/18 11:17 Temperature 98.1 F Pulse Rate 84 Respiratory 18 Rate Blood Pressure 125/73 O2 Sat by Pulse 96 Oximetry Medical Decision Making - Medical Decision Making 28-year-old female presents to the emergency department for bleeding and pelvic cramping since yesterday. Cramping started yesterday and then patient passed a large clot today and has had some continuous cramping. Patient had a D&C on by Dr Khoury. Patient states she has been told to go to the [facility] for palpitations but this was closer. Vitals are stable. Patient is afebrile. Denies any fevers at home. On examination patient does appear to be in some pain. Pelvic exam was performed which did not show any acute hemorrhage, minimal bleeding noted at this time. No discharge. No foul odor. CBC does show a white count of 15.9 which could be reactive. CMP is unremarkable. Urine shows large blood which is likely related to vaginal bleeding. Ultrasound shows a mildly bulky uterus with increased endometrial stripe thickness but without discrete retained of conception. She was given 2 mg of morphine, reevaluated and is feeling much better at this time have her son having some pain. Will be given 2 more milligrams of morphine and sent home with a Tylenol 3 starter pack. Discussed returning or going to [facility] if she has fevers or discharge worsening pain. Discussed following up with Dr. Khoury or syncope or morning. - Lab Data Result diagrams: 12/29/18 11:45 12/29/18 11:45 Lab Results 12/29/18 12/29/18 12/29/18 Range/Units 11:45 11:45 12:32 WBC 15.9 H (3.8-10.6) k/uL RBC 4.38 (3.80-5.40) m/uL Hgb 12.9 (11.4-16.0) gm/dL Hct 39.9 (34.0-46.0) % MCV 91.1 (80.0-100.0) fL MCH 29.6 (25.0-35.0) pg MCHC 32.5 (31.0-37.0) g/dL RDW 13.1 (11.5-15.5) % Plt Count 667 H (150-450) k/uL Neutrophils % 77 % Lymphocytes % 14 % Monocytes % 5 % Eosinophils % 3 % Basophils % 0 % Neutrophils # 12.3 H (1.3-7.7) k/uL Lymphocytes # 2.2 (1.0-4.8) k/uL Monocytes # 0.7 (0-1.0) k/uL Eosinophils # 0.5 (0-0.7) k/uL Basophils # 0.1 (0-0.2) k/uL Sodium 140 (137-145) mmol/L Potassium 4.2 (3.5-5.1) mmol/L Chloride 108 H (98-107) mmol/L Carbon Dioxide 24 (22-30) mmol/L Anion Gap 8 mmol/L BUN 9 (7-17) mg/dL Creatinine 0.63 (0.52-1.04) mg/dL Est GFR (CKD-EPI)AfAm >90 (>60 ml/min/1.73 sqM) Est GFR (CKD-EPI)NonAf >90 (>60 ml/min/1.73 sqM) Glucose 95 (74-99) mg/dL Calcium 9.3 (8.4-10.2) mg/dL Total Bilirubin 0.6 (0.2-1.3) mg/dL AST 16 (14-36) U/L ALT 14 (9-52) U/L Alkaline Phosphatase 47 (38-126) U/L Total Protein 6.9 (6.3-8.2) g/dL Albumin 4.0 (3.5-5.0) g/dL Amylase 51 (30-110) U/L Lipase 120 (23-300) U/L HCG, Quant 3410.8 mIU/mL Urine Color Yellow Urine Appearance Cloudy H (Clear) Urine pH 6.5 (5.0-8.0) Ur Specific [place] 1.015 (1.001-1.035) Urine Protein Negative (Negative) Urine Glucose (UA) Negative (Negative) Urine Ketones Negative (Negative) Urine Blood Large H (Negative) Urine Nitrite Negative (Negative) Urine Bilirubin Negative (Negative) Urine Urobilinogen <2.0 (<2.0) mg/dL Ur Leukocyte Esterase Trace H (Negative) Urine RBC 15 H (0-5) /hpf Urine WBC 9 H (0-5) /hpf Ur Squamous Epith Cells 3 (0-4) /hpf Urine Bacteria Rare H (None) /hpf Urine Mucus Occasional H (None) /hpf Disposition Clinical Impression: Vaginal bleeding, Pelvic cramping Disposition: HOME SELF-CARE Condition: Good Instructions (If sedation given, give patient instructions): Dilation and Curettage (DC), Pelvic Pain in Women (ED) Additional Instructions: Please follow up with Dr. Khoury first thing tomorrow morning. If you start to have any fevers, vaginal discharge worsening bleeding, or worsening pain return to the emergency department. Is patient prescribed a controlled substance at d/c from ED?: No Referrals: Vonda Orosco MD [Primary Care Provider] - 1-2 days Aldo Khoury DO [REFERRING] - 1-2 days Time of Disposition: 13:53
[2018-12-29 12:04] LABS: ALT 14 U/L (9-52); AST 16 U/L (14-36); African American GFR (CKD) >90 (>60 ml/min/1.73 sqM); Alkaline Phosphatase 47 U/L (38-126); Amylase 51 U/L (30-110); Anion Gap 8 mmol/L; Blood Urea Nitrogen 9 mg/dL (7-17); Calcium 9.3 mg/dL (8.4-10.2); Carbon Dioxide 24 mmol/L (22-30); Chloride 108 mmol/L (98-107); Glucose 95 mg/dL (74-99); Potassium 4.2 mmol/L (3.5-5.1); Sodium 140 mmol/L (137-145); Total Bilirubin 0.6 mg/dL (0.2-1.3); Total Protein 6.9 g/dL (6.3-8.2)
[2018-12-29 12:21] LABS: HCG,Quantitative Serum 3410.8 mIU/mL
--- NOTE | 2018-12-29 12:36 | US ---
EXAMINATION TYPE: US transvaginal DATE OF EXAM: 12/29/2018 COMPARISON: NONE CLINICAL HISTORY: Pain. Bleeding and cramping after D & C on . D & C performed due to d emise. TECHNIQUE: Transvaginal (TV). Date of LMP: unsure, patient was and lost . EXAM MEASUREMENTS: Uterus: 10.7 x 6.5 x 7.7 cm Endometrial Stripe: 1.8 cm Right Ovary: 2.9 x 1.8 x 2.3 cm Left Ovary: 2.5 x 2.3 x 3.8 cm 1. Uterus: Anteverted wnl 2. Endometrium: measures 1.8 cm 3. Right Ovary: wnl 4. Left Ovary: wnl Spectral, color and waveform doppler imaging shows good arterial and venous flow within the ovaries ; there is no evidence for ovarian torsion. 5. Bilateral Adnexa: small amount of free fluid adjacent to left ovary 6. Posterior cul-de-sac: no free fluid No evidence of retained products after recent D &C. Endometrium measures 1.8 cm. IMPRESSION: MILDLY BULKY UTERUS WITH INCREASED ENDOMETRIAL STRIPE THICKNESS BUT WITHOUT DISCRETE RETAINED PRODUCT S OF CONCEPTION
[2018-12-29 13:20] LABS: Appearance,Urine Cloudy (Clear); Bacteria,Urine Rare /hpf; Bilirubin,Urine Negative (Negative); Blood,Urine Large (Negative); Color,Urine Yellow; Glucose,Urine (UA) Negative (Negative); Ketones,Urine Negative (Negative); Leukocyte Esterase,Urine Trace (Negative); Mucus,Urine Occasional /hpf; Nitrite,Urine Negative (Negative); PH, Urine 6.5 (5.0-8.0); Protein,Urine Negative (Negative); RBC,Urine 15 /hpf (0-5); Specific Gravity,Urine 1.015 (1.001-1.035); Squamous Epithelial Cell,Urine 3 /hpf (0-4); Urobilinogen,Urine <2.0 mg/dL (<2.0); WBC,Urine 9 /hpf (0-5)
[2018-12-29] MEDS ORDERED: ACET/COD 300 MG/30 MG STARTER PACK 6 TAB BTL PO STA (13:54)
[2018-12-29 14:04] VITALS: BP 120/87; PULSE 61
== END 2018-12-29 14:22 | disposition home or self-care (01) ==
LOC: EC 10:43
DX: N93.9 Abnormal uterine and vaginal bleeding, unspecified (principal); R25.2 Cramp and spasm; N85.2 Hypertrophy of uterus; Z91.040 Latex allergy status; Z90.81 Acquired absence of spleen
CPT/HCPCS: 36415; 80053; 82150; 83690; 85025; 81001; 84702; 76830; 99284; 96374; 96376; 96361; J2270

== ENCOUNTER 2019-03-22 23:17 | Emergency (ER) | payer OTHER ==
[2019-03-23 00:24] LABS: Appearance,Urine Cloudy (Clear); Bacteria,Urine Rare /hpf; Bilirubin,Urine Negative (Negative); Blood,Urine Moderate (Negative); Color,Urine Yellow; Glucose,Urine (UA) Negative (Negative); Ketones,Urine 1+ (Negative); Leukocyte Esterase,Urine Large (Negative); Mucus,Urine Moderate /hpf; Nitrite,Urine Negative (Negative); PH, Urine 6.5 (5.0-8.0); Protein,Urine Trace (Negative); RBC,Urine 2 /hpf (0-5); Specific Gravity,Urine 1.025 (1.001-1.035); Squamous Epithelial Cell,Urine 24 /hpf (0-4)
--- NOTE | 2019-03-23 00:50 | ED ---
Female Urogenital HPI - General Chief complaint: Vaginal Bleeding Stated complaint: 7 wks preg, spotting Time Seen by Provider: 03/23/19 00:23 Source: patient Mode of arrival: ambulatory Limitations: no limitations - History of Present Illness Initial comments: 29-year-old female presents emergency for further evaluation of vaginal bleeding in . Patient states she began extremity vaginal bleeding today she states is light pink. Patient states she is approximately 7.5 weeks . Patient denies any severe pain. Patient states she has had a confirmed intrauterine . Patient states she is established [employer] [employer] care. Patient denies any vaginal discharge dysuria urgency frequency hematuria or flank pain. Remaining review of system negative. Upon arrival patient appears well besides acute distress. Afebrile. Last Menstrual Period: 01/26/19 - Related Data Previous Rx's Medication Instructions Recorded Gabapentin [Neurontin] 300 mg PO BID #22 tab 07/01/18 valACYclovir HCL [Valtrex] 1,000 mg PO Q8HR #21 tab 07/01/18 Allergies Allergy/AdvReac Type Severity Reaction Status Date / Time latex Allergy Rash/Hives Verified 03/22/19 23:45 Review of Systems ROS Statement: Those systems with pertinent positive or pertinent negative responses have been documented in the HPI. ROS Other: All systems not noted in ROS Statement are negative. Past Medical History Past Medical History: No Reported History Additional Past Medical History / Comment(s): Hiatal hernia , shingles, History of Any Multi-Drug Resistant Organisms: None Reported Additional Past Surgical History / Comment(s): splenectomy r/t trauma incident, EGD, D&C Past Anesthesia/Blood Transfusion Reactions: No Reported Reaction Past Psychological History: No Psychological Hx Reported Smoking Status: Never smoker Past Alcohol Use History: None Reported Past Drug Use History: None Reported - Past Family History Mother Family Medical History: No Reported History Father Family Medical History: No Reported History General Exam - General Exam Comments Initial Comments: General: The patient is awake and alert, in no distress, and does not appear acutely ill. Eye: Pupils are equal, round and reactive to light, extra-ocular movements are intact. No nystagmus. There is normal conjunctiva bilaterally. No signs of icterus. Cardiovascular: There is a regular rate and rhythm. No murmur, rub or gallop is appreciated. Respiratory: Lungs are clear to auscultation, respirations are non-labored, breath sounds are equal. No wheezes, stridor, rales, or rhonchi. Gastrointestinal: Soft, non-distended, non-tender abdomen without masses or organomegaly noted. There is no rebound or guarding present. No CVA tenderness. Bowel sounds are unremarkable. Refused pelvic. Musculoskeletal: Normal ROM, no tenderness. Strength 5/5. Sensation intact. Radial pulses equal bilaterally 2+. Neurological: A&O x 3. CN II-XII intact grossly, There are no obvious motor or sensory deficits. Coordination appears grossly intact. Speech is normal. Skin: Skin is warm and dry and no rashes or lesions are noted. Psychiatric: Cooperative, appropriate mood & affect, normal judgment. Limitations: no limitations Course Vital Signs 03/22/19 03/23/19 23:41 02:31 Temperature 98.1 F 97.9 F Pulse Rate 67 80 Respiratory 18 20 Rate Blood Pressure 111/71 133/76 O2 Sat by Pulse 98 96 Oximetry Medical Decision Making - Medical Decision Making 29-year-old feel [facility] for evaluation of bleeding per emergency. Ultrasound concerning for demise. Hitting started today no pain abdominal exam benign. HCG ~[address]69 will trend. Patient does not require Rhogam. Patient will be discharge with outpatient OBGYN f/u. Labs reviewed. Case discussed with attending provider Dr. Cheema agreeable with discharge for repeat US, HCG. - Lab Data Result diagrams: 03/23/19 00:57 03/23/19 00:57 Lab Results 03/22/19 03/23/19 03/23/19 Range/Units 23:45 00:57 00:57 WBC 13.4 H (3.8-10.6) k/uL RBC 4.25 (3.80-5.40) m/uL Hgb 12.7 (11.4-16.0) gm/dL Hct 39.2 (34.0-46.0) % MCV 92.4 (80.0-100.0) fL MCH 29.8 (25.0-35.0) pg MCHC 32.3 (31.0-37.0) g/dL RDW 12.2 (11.5-15.5) % Plt Count 548 H (150-450) k/uL Neutrophils % 64 % Lymphocytes % 24 % Monocytes % 7 % Eosinophils % 3 % Basophils % 0 % Neutrophils # 8.6 H (1.3-7.7) k/uL Lymphocytes # 3.2 (1.0-4.8) k/uL Monocytes # 0.9 (0-1.0) k/uL Eosinophils # 0.4 (0-0.7) k/uL Basophils # 0.0 (0-0.2) k/uL Sodium 137 (137-145) mmol/L Potassium 3.7 (3.5-5.1) mmol/L Chloride 106 (98-107) mmol/L Carbon Dioxide 22 (22-30) mmol/L Anion Gap 9 mmol/L BUN 10 (7-17) mg/dL Creatinine 0.68 (0.52-1.04) mg/dL Est GFR (CKD-EPI)AfAm >90 (>60 ml/min/1.73 sqM) Est GFR (CKD-EPI)NonAf >90 (>60 ml/min/1.73 sqM) Glucose 87 (74-99) mg/dL Calcium 9.1 (8.4-10.2) mg/dL Total Bilirubin 0.5 (0.2-1.3) mg/dL AST 18 (14-36) U/L ALT 20 (9-52) U/L Alkaline Phosphatase 42 (38-126) U/L Total Protein 6.7 (6.3-8.2) g/dL Albumin 4.0 (3.5-5.0) g/dL HCG, Quant 72609.3 mIU/mL Urine Color Yellow Urine Appearance Cloudy H (Clear) Urine pH 6.5 (5.0-8.0) Ur Specific [place] 1.025 (1.001-1.035) Urine Protein Trace H (Negative) Urine Glucose (UA) Negative (Negative) Urine Ketones 1+ H (Negative) Urine Blood Moderate H (Negative) Urine Nitrite Negative (Negative) Urine Bilirubin Negative (Negative) Urine Urobilinogen 6.0 (<2.0) mg/dL Ur Leukocyte Esterase Large H (Negative) Urine RBC 2 (0-5) /hpf Urine WBC 43 H (0-5) /hpf Urine WBC Clumps Rare H (None) /hpf Ur Squamous Epith Cells 24 H (0-4) /hpf Urine Bacteria Rare H (None) /hpf Urine Mucus Moderate H (None) /hpf Blood Type Blood Type Recheck Bld Type Recheck Status Antibody Screen Spec Expiration Date 03/23/19 Range/Units 01:05 WBC (3.8-10.6) k/uL RBC (3.80-5.40) m/uL Hgb (11.4-16.0) gm/dL Hct (34.0-46.0) % MCV (80.0-100.0) fL MCH (25.0-35.0) pg MCHC (31.0-37.0) g/dL RDW (11.5-15.5) % Plt Count (150-450) k/uL Neutrophils % % Lymphocytes % % Monocytes % % Eosinophils % % Basophils % % Neutrophils # (1.3-7.7) k/uL Lymphocytes # (1.0-4.8) k/uL Monocytes # (0-1.0) k/uL Eosinophils # (0-0.7) k/uL Basophils # (0-0.2) k/uL Sodium (137-145) mmol/L Potassium (3.5-5.1) mmol/L Chloride (98-107) mmol/L Carbon Dioxide (22-30) mmol/L Anion Gap mmol/L BUN (7-17) mg/dL Creatinine (0.52-1.04) mg/dL Est GFR (CKD-EPI)AfAm (>60 ml/min/1.73 sqM) Est GFR (CKD-EPI)NonAf (>60 ml/min/1.73 sqM) Glucose (74-99) mg/dL Calcium (8.4-10.2) mg/dL Total Bilirubin (0.2-1.3) mg/dL AST (14-36) U/L ALT (9-52) U/L Alkaline Phosphatase (38-126) U/L Total Protein (6.3-8.2) g/dL Albumin (3.5-5.0) g/dL HCG, Quant mIU/mL Urine Color Urine Appearance (Clear) Urine pH (5.0-8.0) Ur Specific [place] (1.001-1.035) Urine Protein (Negative) Urine Glucose (UA) (Negative) Urine Ketones (Negative) Urine Blood (Negative) Urine Nitrite (Negative) Urine Bilirubin (Negative) Urine Urobilinogen (<2.0) mg/dL Ur Leukocyte Esterase (Negative) Urine RBC (0-5) /hpf Urine WBC (0-5) /hpf Urine WBC Clumps (None) /hpf Ur Squamous Epith Cells (0-4) /hpf Urine Bacteria (None) /hpf Urine Mucus (None) /hpf Blood Type A Positive Blood Type Recheck A Pos Bld Type Recheck Status No Antibody Screen NEGATIVE Spec Expiration Date 03/26/20192304 Disposition Clinical Impression: Vaginal bleeding in Disposition: HOME SELF-CARE Condition: Good Instructions (If sedation given, give patient instructions): Threatened Miscarriage (ED) Additional Instructions: Please use medication as discussed. Please follow-up with your OBGYN on Sunday. Please return to emergency room if the symptoms increase or worsen or for any other concerns-fevers, heavy vaginal bleeding. Is patient prescribed a controlled substance at d/c from ED?: No Referrals: Vonda Orosco MD [Primary Care Provider] - 1-2 days Time of Disposition: 02:34
[2019-03-23 01:13] LABS: Basophils % (A) 0 %; Eosinophils # (A) 0.4 k/uL (0-0.7); Eosinophils % (A) 3 %; HCT 39.2 % (34.0-46.0); HGB 12.7 gm/dL (11.4-16.0); Lymphocytes # (A) 3.2 k/uL (1.0-4.8); Lymphocytes % (A) 24 %; MCH 29.8 pg (25.0-35.0); MCHC 32.3 g/dL (31.0-37.0); MCV 92.4 fL (80.0-100.0); Mean Platelet Volume 5.8; Monocytes # (A) 0.9 k/uL (0-1.0); Monocytes % (A) 7 %; Neutrophils # (A) 8.6 k/uL (1.3-7.7); Neutrophils % (A) 64 %; Platelet Count 548 k/uL (150-450); RBC 4.25 m/uL (3.80-5.40); RDW 12.2 % (11.5-15.5); WBC 13.4 k/uL (3.8-10.6)
[2019-03-23 01:22] LABS: ALT 20 U/L (9-52); AST 18 U/L (14-36); African American GFR (CKD) >90 (>60 ml/min/1.73 sqM); Alkaline Phosphatase 42 U/L (38-126); Anion Gap 9 mmol/L; Blood Urea Nitrogen 10 mg/dL (7-17); Calcium 9.1 mg/dL (8.4-10.2); Carbon Dioxide 22 mmol/L (22-30); Chloride 106 mmol/L (98-107); Glucose 87 mg/dL (74-99); Potassium 3.7 mmol/L (3.5-5.1); Sodium 137 mmol/L (137-145); Total Bilirubin 0.5 mg/dL (0.2-1.3); Total Protein 6.7 g/dL (6.3-8.2)
--- NOTE | 2019-03-23 01:58 | US ---
EXAMINATION TYPE: OB <=14 wks transvag DATE OF EXAM: 03/23/2019 1:28 AM COMPARISON: NONE CLINICAL HISTORY: pain. Bleeding EXAM PERFORMED: Transvaginal (TV) and Transabdominal (TA) EXAM MEASUREMENTS: GESTATIONAL AGE / DATING Physician Established: (8 weeks/0 days) EDC: 11/02/2019 Dates by LMP: (8 weeks/0 days) EDC: 11/02/2019 Dates by First Scan: No previous this is first scan Dates by Current Scan for: (6 weeks/5 days) EDC: 11/11/2019 MATERNAL ANATOMY Uterus: 9.7 x 6.9 x 7.4 cm Right Ovary: Obscured by bowel gas. Left Ovary: Obscured by bowel gas. Post CDS / Adnexa: wnl Presence of free fluid: no Presence of corpus luteal cyst: no Presence of subchorionic bleed: yes GESTATION / SURVEY CRL: .75cm (6 weeks/5 days) Yolk Sac (normal less than 6mm): 3mm Heart Rate: No heart tones seen. IUP: Demise Beta HcG (if available): Not available at this time No heart tones seen. IMPRESSION: There is intrauterine demise at approximately 6 weeks 4 days gestation. Irregular gestational sac. MTDD
[2019-03-23 02:09] LABS: HCG,Quantitative Serum 22070.3 mIU/mL
[2019-03-23 02:31] VITALS: BP 133/76; PULSE 80; RESP 20; TEMP 97.9
== END 2019-03-23 02:59 | disposition home or self-care (01) ==
LOC: EC 23:17
DX: O20.9 Hemorrhage in early pregnancy, unspecified (principal); Z3A.01 Less than 8 weeks gestation of pregnancy; Z91.040 Latex allergy status
CPT/HCPCS: 36415; 76801; 76817; 80053; 81001; 84702; 85025; 86850; 86900; 86901; 87086; 99284

== ENCOUNTER → 2019-03-26 | Outpatient (CLI) | payer OTHER | END | disposition home or self-care (01) | LOC: LABWHC1 12:02 | PROVIDERS: ATTEND Obstetrics & Gynecology | DX: O20.0 Threatened abortion (principal) | CPT/HCPCS: 36415; 84702 ==

== ENCOUNTER 2019-03-28 07:30 | Day surgery (SDC) | payer OTHER ==
[2019-03-27 08:56] VITALS: BMI 22.0
[~2019-03-28 07:30] MED LIST changes: +DEXAMETHASONE SOD PHOSPHATE 10 MG/ML 1 ML VIAL IV ONE; +HYDROmorphone 0.5 MG/0.5 ML SYRINGE IVP PRN; -LACTATED RINGERS 1,000 ML IV SCH; +LIDOCAINE 1% 20 ML VIAL (10MG/ML) FOR IV START INTRADERMA PRN; +MIDAZOLAM 2 MG/2 ML VIAL IV PRN; +ONDANSETRON 4 MG/2 ML VIAL IVP ONE; +Pre Op ABX Message 1 EACH MISC MISCELLANE ONE; +SCOPOLAMINE 1.5MG/72HR PATCH TRANSDERM ONE
--- NOTE | 2019-03-28 07:31 | P.HPOB ---
History of Present Illness H&P Date: 03/28/19 Chief Complaint: Missed AB Preoperative is a 29-year-old female who has a missed AB on ultrasound verified by declining beta hCG levels. Risks and benefits of a suction D&C were reviewed with the patient in detail especially in light of her having one in December of this year. It is unclear what the reason for her miscarriage is, we'll offer genetic screening with this D&C she would like. Risks did include and were specifically tailored to bleeding and infection as well as potential perforation and/or potential for scarring of the uterus making it difficult for her to get as well as risks for anesthesia. We did review that at 6 weeks she may very well be able to have a miscarriage on her own. 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 Past Medical History Past Medical History: No Reported History Additional Past Medical History / Comment(s): Hiatal hernia , Hx shingles, -cramping with some spotting. History of Any Multi-Drug Resistant Organisms: None Reported Additional Past Surgical History / Comment(s): splenectomy r/t trauma incident, EGD, D&C (miscarriage) Past Anesthesia/Blood Transfusion Reactions: No Reported Reaction, Motion Sickness Past Psychological History: No Psychological Hx Reported Additional Psychological History / Comment(s): . Smoking Status: Never smoker Past Alcohol Use History: None Reported Past Drug Use History: None Reported - Past Family History Mother Family Medical History: No Reported History Father Family Medical History: No Reported History Medications and Allergies Allergies Allergy/AdvReac Type Severity Reaction Status Date / Time latex Allergy Rash/Hives Verified 03/27/19 08:41 Exam Osteopathic Statement: *. No significant issues noted on an osteopathic structural exam other than those noted in the History and Physical/Consult. - OBG Physical Exam Breast: both: normal (no masses) Abdomen: bowel sounds normal, no diffuse tenderness, no bruit present, no guarding noted, no hepatomegaly, no splenomegaly, no mass Vulva: both: normal Vagina: normal moisture, no discharge Cervix: no lesion, no discharge Uterus: normal size, normal contour Adnexa: both: normal Anus/Rectum: normal perianal skin, no rectal mass, no hemorrhoids, heme negative
[2019-03-28] MEDS: LACTATED RINGERS 1,000 ML IV SCH ×2 (08:06→08:25)
[2019-03-28] MEDS ORDERED: PROPOFOL 10 MG/ML 20 ML VIAL IV ONE (08:23)
[2019-03-28] MEDS ORDERED: KETOROLAC 30 MG/ML 1 ML VIAL ONE (08:23)
[2019-03-28] MEDS ORDERED: LIDOCAINE 1% INJ 10MG/ML (20 ML MDV) ONE (08:23)
[2019-03-28] MEDS ORDERED: MIDAZOLAM 2 MG/2 ML VIAL ONE (08:23)
[2019-03-28] MEDS ORDERED: ROCURONIUM BROMIDE 10 MG/ML 10 ML VIAL IV ONE (08:23)
[2019-03-28] MEDS ORDERED: fentaNYL (PF) 50 MCG/ML 2 ML AMP ONE (08:23)
--- NOTE | 2019-03-28 08:58 | P.OP ---
Date of Procedure: 03/28/19 Preoperative Diagnosis: Missed AB Postoperative Diagnosis: Same Procedure(s) Performed: Suction D&C Anesthesia: BOUCHRAA Surgeon: Ac Lees Estimated Blood Loss (ml): 50 IV fluids (ml): 400 Pathology: other (Products of conception) Condition: stable Disposition: same day Operative Findings: Pathology pending Description of Procedure: Patient was taken to the operating suite where a general anesthetic was found be adequate. She was prepped and draped in the normal sterile fashion and placed in the dorsal lithotomy position. Initially a speculum was inserted into the vagina and the anterior lip of cervix was identified and grasped with a single- tooth tenaculum. Cervix was then dilated. Using an 8 curved tip catheter was inserted and suction was applied. Significant quantities of products of conception were obtained by rotating handpiece in a clockwise motion extruding is much tissue as possible over approximately 3 passes. Suction tip was then removed and very gentle sharp curettings of endometrium were obtained to verify complete removal of tissue and then 3 more passes with the suction tip curette were done no bleeding is noted and no further tissue was extruded. All instruments were then removed. Sponge, lap, needle counts were correct 2. Patient was then taken to the recovery room in stable and satisfactory condition. Plan - Discharge Summary Discharge Rx Participant: Yes New Discharge Prescriptions: New Ibuprofen [Motrin] 600 mg PO Q6HR PRN #30 tab PRN Reason: Pain Discharge Medication List Ibuprofen [Motrin] 600 mg PO Q6HR PRN #30 tab 03/28/19 [Rx] Follow up Appointment(s)/Referral(s): Ac Lees DO [Doctor of Osteopathic Medicine] - 2 Weeks Activity/Diet/Wound Care/Special Instructions: No heavy lifting, limit stairs and driving, and pelvic rest. If any high temperatures, heavy bleeding, or severe pain call my office Discharge Disposition: HOME SELF-CARE
[2019-03-28 09:10] VITALS: TEMP 97.4
[2019-03-28] MEDS ORDERED: MEPERIDINE 50 MG/ML SYRINGE IVP ONE (09:18)
[2019-03-28] MEDS ORDERED: diphenhydrAMINE 50 MG/ML 1 ML VIAL IVP ONE (09:26)
[2019-03-28 10:29] VITALS: BP 107/58; PULSE 63; RESP 18
== END 2019-03-28 11:08 | disposition home or self-care (01) ==
LOC: OR 07:30
PROVIDERS: ATTEND Obstetrics & Gynecology
DX: O02.1 Missed abortion (principal); Z91.040 Latex allergy status
CPT/HCPCS: 88305; 59820; J2250; J1200; J1100; J2175; J2405; J2001; J3010; J1885; J2704

== ENCOUNTER 2019-07-25 16:32 | Emergency (ER) | payer OTHER ==
[2019-07-25 16:40] VITALS: BP 97/60; PULSE 76; RESP 18; TEMP 98
--- NOTE | 2019-07-25 17:13 | ED ---
Lower Extremity Injury HPI - General Chief Complaint: Extremity Injury, Lower Stated Complaint: fall/7 weeks Time Seen by Provider: 07/25/19 16:41 Source: patient Mode of arrival: ambulatory Limitations: no limitations - History of Present Illness Initial Comments: Patient is a 29-year-old female presenting to the emergency department after she slipped and fell on ice today injuring her left foot and ankle. Patient admits to being 7 weeks . She denies any abdominal pain or vaginal bleeding. She denies hitting her head. She states her only injury from falling is her ankle pain. She states she is able to bear some weight. She denies any previous ankle fractures or surgeries. She has no other complaints at this time. Upon arrival to ER her vitals are stable. - Related Data Previous Rx's Medication Instructions Recorded Ibuprofen [Motrin] 600 mg PO Q6HR PRN #30 tab 03/28/19 Allergies Allergy/AdvReac Type Severity Reaction Status Date / Time latex Allergy Rash/Hives Verified 07/25/19 16:37 Review of Systems ROS Statement: Those systems with pertinent positive or pertinent negative responses have been documented in the HPI. ROS Other: All systems not noted in ROS Statement are negative. Past Medical History Past Medical History: No Reported History Additional Past Medical History / Comment(s): Hiatal hernia , Hx shingles, -cramping with some spotting. History of Any Multi-Drug Resistant Organisms: None Reported Additional Past Surgical History / Comment(s): splenectomy r/t trauma incident, EGD, D&C (miscarriage) Past Anesthesia/Blood Transfusion Reactions: No Reported Reaction, Motion Sickness Past Psychological History: No Psychological Hx Reported Smoking Status: Never smoker Past Alcohol Use History: None Reported Past Drug Use History: None Reported - Past Family History Mother Family Medical History: No Reported History Father Family Medical History: No Reported History General Exam - General Exam Comments Initial Comments: GENERAL: Well-appearing, well-nourished and in no acute distress. HEAD: Atraumatic, normocephalic. EYES: Pupils equal round and reactive to light, extraocular movements intact, sclera anicteric, conjunctiva are normal. ENT: Nares patent, oropharynx clear without exudates. Moist mucous membranes. NECK: Normal range of motion, supple without lymphadenopathy or JVD. LUNGS: Breath sounds clear to auscultation bilaterally and equal. No wheezes rales or rhonchi. HEART: Regular rate and rhythm without murmurs, rubs or gallops. ABDOMEN: Soft, nontender, normoactive bowel sounds. No guarding, no rebound. No masses appreciated. : Deferred EXTREMITIES: Slightly decreased range of motion of the left ankle secondary to pain. Mild pain with palpation of the left lateral malleolus as well as some left midfoot. There is no swelling or deformity seen. Neurovascular intact. Sensation is equal in bilateral lower extremity. SKIN: Warm, Dry, normal turgor, no rashes or lesions noted. Limitations: no limitations Course Vital Signs 07/25/19 16:37 Temperature 98 F Pulse Rate 76 Respiratory 18 Rate Blood Pressure 97/60 O2 Sat by Pulse 99 Oximetry Medical Decision Making - Medical Decision Making Patient is a 29-year-old female presenting with left ankle and foot pain secondary to slipping and falling on ice today. She is 7 weeks . No vaginal bleeding or abdominal pain. X-rays of her left foot and ankle show no acute fractures dislocations. I discussed this with the patient and this is most likely an left ankle sprain. She will be given an Julian compression wrap to use for swelling control and pain relief. She may also do Tylenol and icing to the area. She is in agreement with this plan of care and is stable for discharge. Patient will follow up with her PCP if symptoms persist. Disposition Clinical Impression: Left ankle sprain, Left ankle pain Disposition: HOME SELF-CARE Condition: Stable Instructions (If sedation given, give patient instructions): Ankle Sprain (ED) Additional Instructions: Please return to the Emergency Department if symptoms worsen or any other concerns. Use the compression wrap as needed for swelling and comfort. Continue with icing for the next 2-3 days. Follow-up with PCP if symptoms persist. Is patient prescribed a controlled substance at d/c from ED?: No Referrals: Vonda Orosco MD [Primary Care Provider] - 1-2 days
--- NOTE | 2019-07-25 17:25 | XR ---
EXAMINATION TYPE: XR ankle complete LT DATE OF EXAM: 07/25/2019 COMPARISON: NONE HISTORY: Ankle pain TECHNIQUE: 3 views FINDINGS: Ankle mortise is anatomic. I see no fracture nor dislocation. Joint spaces are normal. [place] tarsals are intact. IMPRESSION: Negative left ankle exam.
--- NOTE | 2019-07-25 17:25 | XR ---
EXAMINATION TYPE: XR foot complete LT DATE OF EXAM: 07/25/2019 COMPARISON: NONE HISTORY: Pain TECHNIQUE: 3 views FINDINGS: Metatarsals are intact. I see no fracture nor dislocation. Joint spaces are fairly normal. IMPRESSION: Negative left foot exam.
== END 2019-07-25 17:48 | disposition home or self-care (01) ==
LOC: EC 16:32
DX: O9A.211 Injury, poisoning and certain other consequences of external causes complicating pregnancy, first trimester (principal); S93.402A Sprain of unspecified ligament of left ankle, initial encounter; Z3A.01 Less than 8 weeks gestation of pregnancy; Z91.040 Latex allergy status; W00.0XXA Fall on same level due to ice and snow, initial encounter; Y92.009 Unspecified place in unspecified non-institutional (private) residence as the place of occurrence of the external cause
CPT/HCPCS: 99283

== ENCOUNTER → 2019-08-06 | Outpatient (CLI) | payer OTHER ==
--- NOTE | 2019-08-06 12:51 | US ---
EXAMINATION TYPE: Transabdominal DATE OF EXAM: 08/06/2019 11:35 AM COMPARISON: NONE CLINICAL HISTORY: Z36 Confirm dates. Confirm date. EXAM PERFORMED: Transabdominal (TA) EXAM MEASUREMENTS: GESTATIONAL AGE / DATING Physician Established: Not yet established Dates by LMP: LMP unknown Dates by First Scan: No previous this is first scan Dates by Current Scan for: (8 weeks/1 days) EDC: 03/16/2020 MATERNAL ANATOMY Uterus: 9.2 x 7.2 x 8.1 cm Right Ovary: Obscured by bowel gas Left Ovary: Obscured by bowel gas Post CDS / Adnexa: wnl Presence of free fluid: no Presence of corpus luteal cyst: no Presence of subchorionic bleed: Small measuring .8 x .3 x .7 cm. GESTATION / SURVEY CRL: 16.87 cm (8 weeks/1 days) Yolk Sac (normal less than 6mm): 4 mm Heart Rate: 170 bpm Rhythm: Normal IUP: Live IUP IMPRESSION: Single live intrauterine with a sonographic age of 8 weeks and 1 day and estima lopez date of delivery of 03/16/2020. Small subchorionic hemorrhage is seen measuring only 0.8 x 0.3 x 0.7 cm. Ovaries are obscured by bowel gas.
== END | disposition home or self-care (01) ==
LOC: RADUSWWP 10:52
PROVIDERS: ATTEND Obstetrics & Gynecology
DX: O46.91 Antepartum hemorrhage, unspecified, first trimester (principal); Z3A.08 8 weeks gestation of pregnancy
CPT/HCPCS: 76801

== ENCOUNTER 2019-12-18 09:18 | Outpatient (CLI) | payer OTHER ==
[2019-12-18 10:05] VITALS: BP 103/59; PULSE 68; RESP 16; TEMP 98.4
--- NOTE | 2019-12-24 16:35 | P.MSEPDOC ---
Presenting Problems - Arrival Data Date of Arrival on Unit: 12/18/19 Time of Arrival on Unit: 09:18 Mode of Transport: Ambulatory - Complaint OB-Reason for Admission/Chief Complaint: Pain Comment: Intermittant cramping. Medical History - Information : 5 Para: 2 Term: 2 : 0 Abortions: Spontaneous or Elective: 2 Number of Living Children: 2 - Gestational Age Gestational Age by DARLENE (wks/days): 27 Weeks and 2 Days Review of Systems - Review of Systems Constitutional: No problems Breast: No problems ENT: No problems Cardiovascular: No problems Respiratory: No problems Gastrointestinal: No problems Genitourinary: No problems Musculoskeletal: No problems Neurological: No problems Skin: No problems Vital Signs - Temperature Temperature: 98.4 F Temperature Source: Oral - Pulse Right Brachial Pulse Rate: 68 Pulse Assessment Method: Automatic Cuff - Respirations Respiratory Rate: 16 Oxygen Delivery Method: Room Air O2 Sat by Pulse Oximetry: 98 - Blood Pressure Right Arm Blood Pressure: 103/59 Blood Pressure Mean: 73 Blood Pressure Source: Automatic Cuff Medical Screen Scoring (Pre) - Cervical Exam Dilation: 0 cm = 0 Membranes: Intact - Uterine Contractions Frequency: N/A Duration: N/A Intensity: N/A - Maternal Vital Signs Maternal Temperature: N/A Signs of Preeclampsia: N/A Maternal Respirations: N/A - Maternal Trauma Maternal Trauma: N/A - Assessment - Baby A Baseline FHR: 135 Heart Rate - NICHD Category: Category I (Normal) = 0 NST: Reactive Position: N/A Station: N/A - Total Score - Baby A Total Score - Baby A: 0 - Total Score - Baby B Total Score - Baby B: 0 - Total Score - Baby C Total Score - Baby C: 0 - Level of Risk - Baby A Level of Risk - Baby A: Low (0-5) - Level of Risk - Baby B Level of Risk - Baby B: Low (0-5) - Level of Risk - Baby C Level of Risk - Baby C: Low (0-5) Physician Notification (Pre) - Physician Notified Physician Notified Date: 12/18/19 Physician Notified Time: 09:45 New Order Received: Yes - Notification Comment Comment: Dr. Bullock given report on pt in tr. Pt c/o of cramping that started two days. ago. VS wnl. FHT WNL with moderate variability. No contractions noted per toco. Orders. recieved to collect FFN and perform vag exam. If closed to discharge pt to home. Disposition - Disposition OB Disposition: Discharge to home Discharge Date: 12/18/19 Discharge Time: 09:55 I agree with the RN Medical Screening Exam: Yes Risk & Benefit of care provided described in d/c instruction: Yes Diagnosis: RELATED CONDITIONS, UNSPECIFIED, SECOND TRIMESTER
== END 2019-12-18 09:55 | disposition home or self-care (01) ==
LOC: FBPOP 09:18
PROVIDERS: ATTEND Obstetrics & Gynecology
DX: O26.92 Pregnancy related conditions, unspecified, second trimester (principal); Z3A.27 27 weeks gestation of pregnancy
CPT/HCPCS: 99213

== ENCOUNTER 2020-02-20 12:39 | Outpatient (CLI) | payer OTHER ==
[2020-02-20 13:23] LABS: Amorphous Sediment,Urine Moderate /hpf; Appearance,Urine Cloudy (Clear); Bacteria,Urine Occasional /hpf; Bilirubin,Urine Negative (Negative); Blood,Urine Moderate (Negative); Color,Urine Yellow; Glucose,Urine (UA) Negative (Negative); Ketones,Urine Negative (Negative); Leukocyte Esterase,Urine Large (Negative); Mucus,Urine Rare /hpf; Nitrite,Urine Negative (Negative); PH, Urine 6.5 (5.0-8.0); Protein,Urine Negative (Negative); RBC,Urine 11 /hpf (0-5); Specific Gravity,Urine 1.011 (1.001-1.035); Squamous Epithelial Cell,Urine 25 /hpf (0-4); Trichomonas,Urine Rare /hpf; Urobilinogen,Urine <2.0 mg/dL (<2.0); WBC,Urine 38 /hpf (0-5)
[2020-02-20] MEDS ORDERED: BETAMET ACET-BETAMETH SOD PHOS 6 MG/ML MDV IM SCH (14:00)
[2020-02-20 14:17] VITALS: BP 107/57; PULSE 66; RESP 16; TEMP 97.8
--- NOTE | 2020-03-02 09:59 | P.MSEPDOC ---
Presenting Problems - Arrival Data Date of Arrival on Unit: 02/20/20 Time of Arrival on Unit: 12:39 Mode of Transport: Ambulatory - Complaint OB-Reason for Admission/Chief Complaint: Possible Onset of Labor, Observation/Evaluation Medical History - Information : 5 Para: 2 Term: 2 : 0 Abortions: Spontaneous or Elective: 2 Number of Living Children: 2 - Gestational Age Gestational Age by DARLENE (wks/days): 36 Weeks and 3 Days Review of Systems - Review of Systems Constitutional: No problems Breast: No problems ENT: No problems Cardiovascular: No problems Respiratory: No problems Gastrointestinal: No problems Genitourinary: No problems Musculoskeletal: No problems Neurological: No problems Skin: No problems Vital Signs - Temperature Temperature: 97.8 F Temperature Source: Temporal Artery Scan - Pulse Right Sitting Brachial Pulse Rate: 66 Pulse Assessment Method: Automatic Cuff - Respirations Respiratory Rate: 16 Oxygen Delivery Method: Room Air O2 Sat by Pulse Oximetry: 98 - Blood Pressure Right Arm Sitting Blood Pressure: 107/57 Blood Pressure Mean: 73 Blood Pressure Source: Automatic Cuff Medical Screen Scoring (Pre) - Cervical Exam Dilation: 4-7 cm = 2 Effacement: More than 50% = 2 Membranes: Intact - Uterine Contractions Frequency: N/A, > 5 minutes apart = 1 Duration: > 40 seconds = 2 Intensity: N/A - Maternal Vital Signs Maternal Temperature: N/A Maternal Blood Pressure: N/A Signs of Preeclampsia: N/A Maternal Respirations: N/A - Maternal Trauma Maternal Trauma: N/A - Assessment - Baby A Baseline FHR: 115 Heart Rate - NICHD Category: Category I (Normal) = 0 NST: Reactive Position: N/A Station: N/A - Total Score - Baby A Total Score - Baby A: 7 - Total Score - Baby B Total Score - Baby B: 7 - Total Score - Baby C Total Score - Baby C: 7 - Level of Risk - Baby A Level of Risk - Baby A: Medium (6-9) - Level of Risk - Baby B Level of Risk - Baby B: Medium (6-9) - Level of Risk - Baby C Level of Risk - Baby C: Medium (6-9) Physician Notification (Pre) - Physician Notified Physician Notified Date: 02/20/20 Physician Notified Time: 13:51 New Order Received: Yes - Notification Comment Comment: Yuli c\Dr. Lees, reviewed pts concerns, 36 09/08, lower back pain and. suprapubic pressure, at [facility] yesterday, same today, reactive NST,. reviewed UA +urine trichonomas. States script will be sent to [facility] on [address], pt. to take as directed and follow up on Sunday. Celestone 12mg IM to be administered since. pt rec'd does at [facility] yesterday. Disposition - Disposition OB Disposition: Discharge to home, Written follow up instructions reviewed Discharge Date: 02/20/20 Discharge Time: 14:10 I agree with the RN Medical Screening Exam: Yes Risk & Benefit of care provided described in d/c instruction: Yes Diagnosis: FALSE LABOR BEFORE 37 COMPLETED WEEKS OF GEST, THIRD TRI
== END 2020-02-20 14:10 | disposition home or self-care (01) ==
LOC: FBPOP 12:39
PROVIDERS: ATTEND Obstetrics & Gynecology
DX: O47.03 False labor before 37 completed weeks of gestation, third trimester (principal); Z3A.36 36 weeks gestation of pregnancy
CPT/HCPCS: 59025; 81001; G0463; J0702; 99213

== ENCOUNTER 2020-02-29 21:30 | Inpatient (IN) | payer OTHER ==
[2020-02-29] MEDS ORDERED: CARBOPROST TROMETHAMINE 250 MCG/ML 1 ML AMP IM PRN (21:41)
[2020-02-29] MEDS ORDERED: METHYLERGONOVINE 0.2 MG/ML 1 ML AMP IM PRN (21:41)
[2020-02-29] MEDS ORDERED: TERBUTALINE 1 MG/ML VIAL SQ PRN (21:41)
[2020-02-29] MEDS ORDERED: AMPICILLIN 2,000 MG in SODIUM CHLORIDE 0.9% 100 ML IVPB STA (21:41)
[2020-02-29] MEDS ORDERED: OXYTOCIN 10 UNIT/ML 1 ML VIAL IM PRN (21:41)
[2020-02-29] MEDS ORDERED: LIDOCAINE 0.5% (PF) 5 MG/ML (50 ML SDV) SQ PRN (21:41)
[2020-02-29] MEDS ORDERED: LACTATED RINGERS 1,000 ML IV SCH (21:45)
[2020-02-29 22:36] LABS: Basophils % (A) 0 %; Eosinophils # (A) 0.3 k/uL (0-0.7); Eosinophils % (A) 1 %; HCT 35.8 % (34.0-46.0); HGB 11.9 gm/dL (11.4-16.0); Lymphocytes # (A) 3.4 k/uL (1.0-4.8); Lymphocytes % (A) 15 %; MCH 29.2 pg (25.0-35.0); MCHC 33.1 g/dL (31.0-37.0); MCV 88.3 fL (80.0-100.0); Mean Platelet Volume 6.9; Monocytes # (A) 0.8 k/uL (0-1.0); Monocytes % (A) 4 %; Neutrophils # (A) 17.9 k/uL (1.3-7.7); Neutrophils % (A) 79 %; Platelet Count 541 k/uL (150-450); RBC 4.06 m/uL (3.80-5.40); RDW 13.5 % (11.5-15.5); WBC 22.6 k/uL (3.8-10.6)
--- NOTE | 2020-02-29 22:47 | P.HPOB ---
History of Present Illness H&P Date: 02/29/20 Chief Complaint: Contractions This patient is a 29-year-old 5 para 2 female estimated date of confinement 03/16/2020 estimated gestational age 37-4/7 weeks presents to labor and delivery with complaints of regular painful contractions. Patient states that she was at a birthday libertarian earlier today for her oldest daughter and states that she fell and on her knees. She began having contractions sometime thereafter. She denies vaginal bleeding or hitting her abdomen. care is per Dr. Wynne patient is now 6 cm dilated and found to be in active labor. ster, appears to be complicated by thrombocytosis and small for gestational age. Most recent blood work looks like was most likely in December and her platelets were 494. I cannot find any recent platelets on her otherwise. Patient states that she said on to baby aspirin a day and was seen by maternal medicine earlier in the . Most recent ultrasound put the baby and 5 lbs. 4 oz. which is the 16th percentile. Patient also had an episode of contractions and was given steroids at 36 weeks at an outside hospital. Patient is now 6 cm dilated thought to be in active labor. Review of Systems Genitourinary: Reports Menstruation: Reports amenorrhea Past Medical History Additional Past Medical History / Comment(s): Hiatal hernia , Hx shingles. Thrombocytosis History of Any Multi-Drug Resistant Organisms: None Reported Additional Past Surgical History / Comment(s): splenectomy r/t trauma incident, EGD, D&C x2 (miscarriage) Past Anesthesia/Blood Transfusion Reactions: No Reported Reaction, Motion Sickness Past Psychological History: No Psychological Hx Reported Additional Psychological History / Comment(s): . Smoking Status: Never smoker Past Alcohol Use History: None Reported Past Drug Use History: None Reported - Past Family History Mother Family Medical History: No Reported History Father Family Medical History: No Reported History Medications and Allergies Allergies Allergy/AdvReac Type Severity Reaction Status Date / Time latex AdvReac Rash/Hives Verified 02/29/20 21:36 Exam Vital Signs Temp Pulse Resp BP 02/29/20 22:00 97.5 F L 74 16 116/58 Intake and Output 02/29/20 02/29/20 02/29/20 06:59 14:59 22:59 Other: # Voids 1 Weight 58.06 kg - OBG Physical Exam Abdomen: bowel sounds normal, no diffuse tenderness, no bruit present, no guarding noted, no hepatomegaly, no splenomegaly, no mass Vulva: both: normal Vagina: normal moisture, no discharge Cervix: no lesion (Cervix is 6 / 50% effaced -2 station.), no discharge Uterus: enlarged Results blood work shows she is A positive, rubella immune, RPR nonreactive, hepatitis B negative, HIV is nonreactive, group B strep was positive, most recent ultrasound showed baby 5 lbs. 4 oz. which is the 16th percentile. Assessment and Plan Assessment: This is a 29-year-old 5 para 2 female 37-4/7 weeks gestation in active labor. Patient appears to have a small for gestational age infant and known thrombocytosis. Patient has a history of positive strep this . Plan is antibiotic prophylaxis and anticipate vaginal delivery. (1) 37 weeks gestation of Current Visit: Yes Status: Acute Code(s): Z3A.37 - 37 WEEKS GESTATION OF SNOMED Code(s): 41734625 (2) Group B streptococcal carriage complicating Current Visit: Yes Status: Acute Code(s): O99.820 - STREPTOCOCCUS B CARRIER STATE COMPLICATING SNOMED Code(s): 013018751032037 (3) Normal labor Current Visit: Yes Status: Acute Code(s): O80 - ENCOUNTER FOR FULL-TERM UNCOMPLICATED DELIVERY; Z37.9 - OUTCOME OF DELIVERY, UNSPECIFIED SNOMED Code(s): 51490559 (4) Thrombocytosis after splenectomy Current Visit: Yes Status: Acute Code(s): D47.3 - ESSENTIAL (HEMORRHAGIC) THROMBOCYTHEMIA; Z90.81 - ACQUIRED ABSENCE OF SPLEEN SNOMED Code(s): 171003449 (5) Small for gestational age fetus Current Visit: Yes Status: Acute Code(s): MBG8454 - SNOMED Code(s): 604089038
[2020-03-01] MEDS ORDERED: AMPICILLIN 1,000 MG in SODIUM CHLORIDE 0.9% 50 ML IVPB SCH (01:42)
[2020-03-01] MEDS ORDERED: SIMETHICONE 80 MG CHEWABLE PO PRN (03:48)
[2020-03-01] MEDS ORDERED: HYDROCORTISONE 2.5% RECTAL CREAM 30 GM TUBE RECTAL PRN (03:48)
[2020-03-01] MEDS ORDERED: ZOLPIDEM 5 MG TAB PO PRN (03:48)
[2020-03-01] MEDS ORDERED: diphenhydrAMINE 25 MG CAP PO PRN (03:48)
[2020-03-01] MEDS ORDERED: diphenhydrAMINE 50 MG/ML 1 ML VIAL IVP PRN (03:48)
[2020-03-01] MEDS ORDERED: LANOLIN CREAM 5 GM TUBE TOPICAL PRN (03:48)
[2020-03-01] MEDS ORDERED: bisacodyL 10 MG SUPP RECTAL PRN (03:48)
[2020-03-01] MEDS ORDERED: BENZOCAINE/MENTHOL SPRAY 1 GM/SPRAY AEROSOL TOPICAL PRN (03:48)
--- NOTE | 2020-03-01 03:52 | P.PROBDLV ---
Vaginal Delivery Note - . Vaginal Delivery Note: Normal spontaneous vaginal delivery viable male infant Apgars 9 and 9 delivery time was 0336 hours. Please see dictated H&P for intimate details of this patient's admission. In brief summary this is a 29-year-old 5 para 2 female 37-4/7 weeks gestation admitted to labor and delivery in early active labor. Patient 6 cm dilated on admission has antibiotic prophylaxis for positive group B strep culture and artificial rupture membranes for clear fluid. Labor progresses and patient does get to complete. She does not request anything for pain control. Patient pushes the head to the perineum with controlled delivery of 's head delivered straight OA. Mouth and nares are bulb suctioned. There is no evidence of nuchal cord. With gentle downward traction we then have deliver the anterior and posterior shoulder and rest this infant's body. This is a vigorous viable male infant Apgars are 9 and 9 delivery time was 0336 hours. After delivery of the the infant is late on the mother's abdomen. The umbilical cord is allowed to quit pulsating, it is then doubly clamped and cut. It appears to be trivascular. Placenta is then spontaneously delivered intact. Inspection of perineum shows no lacerations and no repairs required. Estimated blood loss is approximately 100 mL. and mother stable delivery room. There are no complications. All counts correct 3.
[2020-03-01] MEDS ORDERED: OXYTOCIN 20 UNITS/1000 ML NS 1,000 ML IV SCH (04:00)
[2020-03-01] MEDS: IBUPROFEN 600 MG TAB PO PRN ×3 (04:07→21:30)
[2020-03-01] MEDS: SENNOSIDES-DOCUSATE SODIUM 1 EACH TAB PO SCH ×2 (07:41→22:20)
[2020-03-01] MEDS: ACETAMINOPHEN TAB 325 MG TAB PO PRN ×2 (07:43→18:47)
[2020-03-02 06:08] VITALS: RESP 18
[2020-03-02 08:50] VITALS: BP 107/61; PULSE 62; TEMP 98
[2020-03-02] MEDS: SENNOSIDES-DOCUSATE SODIUM 1 EACH TAB PO SCH (09:20)
--- NOTE | 2020-03-02 09:45 | P.DS ---
Providers Date of admission: 02/29/20 21:47 Expected date of discharge: 03/02/20 Attending physician: Ac Lees Primary care physician: Stated None Hospital Course: Patient is doing very well day 1. She is involuting, voiding and tolerating her diet. She voices no complaints. Vital signs are stable and afebrile. Heart regular, lungs clear, extremities without pain. Abdomen is soft uterus is firm and lochia is reported light. We'll plan discharged home today. Discharge instructions are thoroughly reviewed and all questions were answered for her prior to her discharge. She is stable for discharge this time. She will follow up with me in 6 weeks. Patient Condition at Discharge: Good Plan - Discharge Summary New Discharge Prescriptions: New Ibuprofen [Motrin] 600 mg PO Q6HR PRN #30 tab PRN Reason: Pain Discharge Medication List Ibuprofen [Motrin] 600 mg PO Q6HR PRN #30 tab 03/02/20 [Rx] Follow up Appointment(s)/Referral(s): Ac Lees DO [Doctor of Osteopathic Medicine] - 6 Weeks Activity/Diet/Wound Care/Special Instructions: No heavy lifting, limit stairs and driving, and pelvic rest. If any high temperatures, heavy bleeding, or severe pain call my office. Discharge Disposition: HOME SELF-CARE
[2020-03-02 11:31] LABS: Basophils # (A) 0.1 k/uL (0-0.2); Basophils % (A) 0 %; Eosinophils # (A) 0.1 k/uL (0-0.7); Eosinophils % (A) 1 %; HCT 35.1 % (34.0-46.0); HGB 11.2 gm/dL (11.4-16.0); Lymphocytes # (A) 4.3 k/uL (1.0-4.8); Lymphocytes % (A) 19 %; MCH 28.5 pg (25.0-35.0); MCHC 31.9 g/dL (31.0-37.0); MCV 89.5 fL (80.0-100.0); Mean Platelet Volume 6.8; Monocytes # (A) 1.1 k/uL (0-1.0); Monocytes % (A) 5 %; Neutrophils # (A) 16.8 k/uL (1.3-7.7); Neutrophils % (A) 74 %; Platelet Count 506 k/uL (150-450); RBC 3.92 m/uL (3.80-5.40); RDW 13.5 % (11.5-15.5); WBC 22.7 k/uL (3.8-10.6)
== END 2020-03-02 12:05 | disposition home or self-care (01) | DRG 806 ==
LOC: FBPOP 21:30 → 4FBP 21:47
PROVIDERS: ADMIT Obstetrics & Gynecology; ATTEND Obstetrics & Gynecology
PROC: 10E0XZZ Delivery of Products of Conception, External Approach (ICD-10-PCS; principal; 2020-03-01)
DX: O36.5930 Maternal care for other known or suspected poor fetal growth, third trimester, not applicable or unspecified (principal); O99.12 Other diseases of the blood and blood-forming organs and certain disorders involving the immune mechanism complicating childbirth; Z37.0 Single live birth; O99.824 Streptococcus B carrier state complicating childbirth; D47.3 Essential (hemorrhagic) thrombocythemia; O99.62 Diseases of the digestive system complicating childbirth; K44.9 Diaphragmatic hernia without obstruction or gangrene; Z3A.37 37 weeks gestation of pregnancy; Z90.81 Acquired absence of spleen; Z79.82 Long term (current) use of aspirin; Z91.040 Latex allergy status; Z86.19 Personal history of other infectious and parasitic diseases
CPT/HCPCS: 59025; 85025; 86850; 86900; 86901; 88307; 99213